=== PATIENT | male | born 1985 | race Caucasian/White ===

== ENCOUNTER 2016-04-26 07:16 | Observation (INO) | payer BC, OTHER ==
[~2016-04-26] VITALS: Ht 185.4 cm; Wt 97.5 kg
[2016-04-26] MEDS ORDERED: NICO4GUM8 PO (07:32)
[2016-04-26] MEDS ORDERED: ZOLO100T PO (07:32)
[2016-04-26] MEDS ORDERED: KETOROLAC 30 MG/ML VIAL (J1885) IV ONE (08:00)
[2016-04-26] MEDS ORDERED: NS 1,000 ML IV ONE (08:00)
[2016-04-26] MEDS ORDERED: ONDANSETRON 4MG/2ML VIAL (J2405) IV ONE (08:00)
[2016-04-26] MEDS ORDERED: GASTROGRAFIN SOLUTION 30ML (Q9963) As Ordered ONE (08:19)
[2016-04-26 08:34] LABS: BASO % 0.2 % (0.0-1.0); EOS # 0.1 K/mm3 (0.0-0.50); LARGE UNSTAINED CELL # 0.1 K/mm3 (0.0-0.4); LARGE UNSTAINED CELL % 1.3 % (0.0-4.0); LYMPH % 18.4 % (24.0-44.0); MEAN CORPUSCULAR HEMOGLOBIN 30.7 pg (27.0-33.0); MEAN CORPUSCULAR HGB CONC 35.7 g/dl (32.0-36.5); MONO # 0.7 K/mm3 (0.0-0.8); MONO % 6.6 % (0.0-5.0); NEUTROPHILS # 7.7 K/mm3 (1.8-7.7); NEUTROPHILS % 72.4 % (36.0-66.0); PLATELET COUNT, AUTOMATED 200 k/mm3 (150-450); RED CELL DISTRIBUTION WIDTH 12.6 % (11.5-14.5); WHITE BLOOD COUNT 10.6 K/mm3 (4.0-10.0)
[2016-04-26 08:56] LABS: ALBUMIN 4.3 GM/DL (3.2-5.2); ALBUMIN/GLOBULIN RATIO 1.26 (1.00-1.93); ALKALINE PHOSPHATASE 78 U/L (45-117); ALT/SGPT 58 U/L (12-78); AMYLASE 48 U/L (25-115); ANION GAP 8 MEQ/L (8-16); AST/SGOT 25 U/L (15-37); BILIRUBIN,DIRECT < 0.1 MG/DL (0.0-0.2); BILIRUBIN,TOTAL 0.8 MG/DL (0.2-1.0); BLOOD UREA NITROGEN 15 MG/DL (7-18); CALCIUM LEVEL 8.9 MG/DL (8.5-10.1); CARBON DIOXIDE LEVEL 27 MEQ/L (21-32); CHLORIDE LEVEL 103 MEQ/L (98-107); GLOMERULAR FILTRATION RATE > 60.0 (>60); GLUCOSE, FASTING 101 MG/DL (70-105); POTASSIUM SERUM 3.9 MEQ/L (3.5-5.1); SODIUM LEVEL 138 MEQ/L (136-145); TOTAL PROTEIN 7.7 GM/DL (6.4-8.2)
[2016-04-26] MEDS ORDERED: GASTROGRAFIN SOLUTION 30ML (Q9963) PO SCH (09:15)
[2016-04-26] MEDS ORDERED: ISOVUE-370 76% 100ML VIAL (Q9967) As Ordered ONE (09:58)
--- NOTE | 2016-04-26 10:28 | REP ---
Clinical: Acute abdominal pain with diarrhea, hematochezia, mucus in stools. Technique: Axial contrast enhanced images from the lung bases to the pubic symphysis using oral and 100 ml Isovue 370 intravenous contrast material with coronal and sagittal re-formations. Comparison: 07/30/2015. Findings: Subtle stranding in the right lower quadrant surrounding the appendix which is otherwise normal in appearance suggests early, acute appendicitis and should be correlated clinically. No associated bowel obstruction, free air, or drainable collection/abscess. Fatty infiltration to the liver without focal hepatic lesion. Spleen, pancreas, gallbladder, bilateral adrenal glands and kidneys are normal. The small large bowel is unremarkable and without obstruction or further acute inflammatory process. Pelvis demonstrates normal bladder and age appropriate prostate/seminal vesicles. No pelvic fluid or ascites. No free air. No adenopathy. Vasculature is normal. Chronic L5 spondylolysis without spondylolisthesis is appreciated. Impression: Findings suggest early, acute appendicitis and require clinical correlation. Fatty infiltration the liver. Chronic L5 spondylolysis without spondylolisthesis. Signed by Wally Rodriguez MD 04/26/2016 10:20 A
[2016-04-26] MEDS ORDERED: PIPERACILLIN/TAZOBACTAM SOD 3.375 GM in D5W MINI-BAG PLUS 50 ML IV ONE (11:00)
[2016-04-26] MEDS ORDERED: LR 1,000 ML IV ONE (12:30)
[2016-04-26 15:56] VITALS: BP 138/83
[2016-04-26] MEDS ORDERED: BENA25TA9 PO (16:39)
[2016-04-26] MEDS ORDERED: ONDANSETRON 4MG/2ML VIAL (J2405) IV PRN ×3 (17:45→22:15)
[2016-04-26] MEDS ORDERED: MORPHINE 2 MG/ML 1ML SYRINGE IV PRN ×2 (17:45→21:30)
[2016-04-26] MEDS ORDERED: PIPERACILLIN/TAZOBACTAM SOD 3.375 GM in D5W MINI-BAG PLUS 50 ML IV SCH (18:00)
[2016-04-26 18:45] VITALS: BP 163/84
[2016-04-26] MEDS ORDERED: BUPIVACAINE/EPIN 0.25% 30 ML VIAL As Ordered ONE (19:42)
[2016-04-26] MEDS ORDERED: HYDROmorphone HCL 2 MG/ML 1ML VIAL (J1170) As Ordered ONE (20:24)
[2016-04-26] MEDS ORDERED: MIDAZOLAM INJ 2 MG/2 ML VIAL (J2250) As Ordered ONE (20:24)
[2016-04-26] MEDS ORDERED: fentaNYL 100 MCG/2 ML INJECTION (J3010) As Ordered ONE (20:24)
[2016-04-26] MEDS ORDERED: PROPOFOL 500 MG/50 ML VIAL As Ordered ONE (20:24)
[2016-04-26] MEDS ORDERED: ROCURONIUM BROMIDE 50 MG/5 ML VIAL As Ordered ONE ×2 (20:27→20:36)
[2016-04-26] MEDS ORDERED: dexameTHASONE 4 MG/ML 1ML VIAL (J1100) As Ordered ONE (20:28)
[2016-04-26] MEDS ORDERED: LIDOCAINE 2% INJ 100 MG/5 ML SDV (FOR ANES.) As Ordered ONE (20:37)
[2016-04-26] MEDS ORDERED: NEOSTIGMINE 1MG/ML 5 ML SYRINGE (J2710) As Ordered ONE (21:03)
[2016-04-26] MEDS ORDERED: GLYCOPYRROLATE INJ 0.2 MG/ML 2 ML VIAL As Ordered ONE ×2 (21:03→21:12)
[2016-04-26] MEDS ORDERED: ONDANSETRON 4MG/2ML VIAL (J2405) As Ordered ONE (21:03)
[2016-04-26] MEDS ORDERED: PROMETHAZINE INJ 25 MG/ML VIAL (J2550) IV PRN (21:30)
[2016-04-26] MEDS ORDERED: MORPHINE 4 MG/ML 1ML SYRINGE IV PRN (21:30)
[2016-04-26] MEDS ORDERED: METOCLOPRAMIDE INJ 10MG/2ML VIAL (J2765) IV PRN (21:30)
[2016-04-26] MEDS ORDERED: NORCO, ANEXSIA 5/325MG TABLET (HYDROcodone/ACETAMINOPHEN) PO PRN (21:30)
[2016-04-26] MEDS ORDERED: KETOROLAC 30 MG/ML VIAL (J1885) As Ordered ONE (21:36)
[2016-04-26] MEDS ORDERED: MEPERIDINE INJ 25 MG/ML VIAL (J2175) As Ordered ONE (21:36)
[2016-04-26] MEDS: KETOROLAC 30 MG/ML VIAL (J1885) IV PRN (21:37)
[2016-04-26] MEDS: MEPERIDINE INJ 25 MG/ML VIAL (J2175) IV PRN ×4 (21:37→22:26)
[2016-04-26] MEDS ORDERED: KETOROLAC 30 MG/ML VIAL (J1885) IV PRN (22:15)
[2016-04-26] MEDS ORDERED: PERCOCET 5MG/325MG TAB PO PRN (22:15)
[2016-04-26] MEDS ORDERED: LR 1,000 ML IV SCH (22:15)
[2016-04-26] MEDS ORDERED: fentaNYL 100 MCG/2 ML INJECTION (J3010) IV PRN (22:15)
[2016-04-26] MEDS ORDERED: HYDROmorphone HCL 1 MG/ML SYRINGE (J1170) IV PRN (22:15)
[2016-04-26] MEDS: LR 1,000 ML IV SCH (22:30)
[2016-04-26 22:45] VITALS: BP 156/97
[2016-04-26 23:15] VITALS: BP 160/77
[2016-04-27] VITALS: BP 140/80
[2016-04-27] MEDS: PIPERACILLIN/TAZOBACTAM SOD 3.375 GM in D5W MINI-BAG PLUS 50 ML IV SCH ×3 (00:07→11:55)
[2016-04-27] MEDS: NORCO, ANEXSIA 5/325MG TABLET (HYDROcodone/ACETAMINOPHEN) PO PRN ×2 (00:08→06:39)
[2016-04-27 01:00] VITALS: BP 138/75
[2016-04-27 02:00] VITALS: BP 129/77
[2016-04-27 04:00] VITALS: BP 138/81
[2016-04-27] MEDS: KETOROLAC 30 MG/ML VIAL (J1885) IV PRN (04:12)
[2016-04-27] MEDS: LR 1,000 ML IV SCH (05:02)
[2016-04-27 08:39] VITALS: BP 116/62
[2016-04-27] MEDS ORDERED: SERTRALINE 100 MG TAB PO SCH (09:00)
[2016-04-27] MEDS ORDERED: NICOTINE 21MG/24HR 1 EA TRANSDERMAL TD SCH (09:00)
[2016-04-27] MEDS ORDERED: SLF 3 ML SYR IV PRN (10:15)
[2016-04-27 12:00] VITALS: BP 133/76
[2016-04-27] MEDS ORDERED: SLF 3 ML SYR IV SCH (14:00)
[2016-04-27] MEDS ORDERED: NORCOTAB PO (14:37)
[2016-04-28] MEDS ORDERED: SERTRALINE 100 MG TAB PO SCH (09:00)
== END 2016-04-27 15:45 | disposition home or self-care (01) ==
LOC: M ED 08:00 → M SDC 13:16 → M PED 15:55 → M SDC 21:18
PROVIDERS: ADMIT Surgery; ATTEND Surgery
DX: K35.3 Acute appendicitis with localized peritonitis (principal); K21.9 Gastro-esophageal reflux disease without esophagitis; K58.0 Irritable bowel syndrome with diarrhea; Z87.442 Personal history of urinary calculi; F17.210 Nicotine dependence, cigarettes, uncomplicated; Z79.899 Other long term (current) drug therapy
CPT/HCPCS: 44970; 74177; 80048; 80076; 81001; 82150; 83690; 85025; 88304; 96365; 96366; 96374; 96375; 96376; 99284; J1100; J1170; J1885; J2175; J2250; J2405; J2543; J2710; J3010; Q9963; Q9967

== ENCOUNTER → 2016-05-05 | Outpatient (REF) | payer BC, OTHER ==
[~2016-05-05] MED LIST: BENA25TA9 PO; NICO4GUM8 PO; NORCOTAB PO; ZOLO100T PO
== END ==
LOC: M LAB REF 12:39
PROVIDERS: ATTEND Internal Medicine Gastroenterology
DX: K58.0 Irritable bowel syndrome with diarrhea (principal)

== ENCOUNTER → 2016-05-07 | Outpatient (CLI) | payer BC, OTHER ==
[~2016-05-07] MED LIST changes: +E-Z PAQUE 60% w/v SUSP 355ML BOTTLE As Ordered ONE
--- NOTE | 2016-05-07 18:26 | REP ---
SMALL BOWEL FOLLOW-THROUGH: The procedure was performed under the direct supervision of Dr. Burr. The images were reviewed with Dr. Burr. The network/telecom engineer film shows no organomegaly or pathological masses. The intestinal gas pattern is nonspecific. Liquid barium was administered and the barium column was followed through the small bowel to the level of the terminal ileum. Small bowel transit time was quite rapid as there is contrast seen in the transverse colon on the 0 minute film. During fluoroscopy gentle palpation shows all loops are freely movable and pliable. There are no fixed or angulated loops. The small bowel mucosal pattern is normal in course and caliber. There is no transition to suggest a partial small bowel obstruction. Spot filming of terminal ileum shows it to be unremarkable. IMPRESSION: Small bowel transit time is quite rapid as contrast is seen in the transverse colon on the 0 minute film. Otherwise unremarkable small bowel follow-through examination. 59 seconds of fluoroscopy time was utilized for this procedure. Reviewed by LU Payan 05/10/2016 06:53 PEdited and Signed by Rip Burr MD 05/13/2016 09:52 A
== END ==
LOC: M RAD 08:09
PROVIDERS: ATTEND Internal Medicine Gastroenterology
DX: K58.0 Irritable bowel syndrome with diarrhea (principal)

== ENCOUNTER → 2016-05-14 | Outpatient (REF) | payer OTHER ==
[~2016-05-14] MED LIST changes: -E-Z PAQUE 60% w/v SUSP 355ML BOTTLE As Ordered ONE
[2016-05-14 12:02] LABS: BASO % 0.5 % (0.0-1.0); EOS # 0.1 K/mm3 (0.0-0.50); EOS % 2.5 % (0.0-3.0); LARGE UNSTAINED CELL # 0.1 K/mm3 (0.0-0.4); LARGE UNSTAINED CELL % 1.7 % (0.0-4.0); LYMPH # 1.8 K/mm3 (1.5-4.5); LYMPH % 39.6 % (24.0-44.0); MEAN CORPUSCULAR HEMOGLOBIN 31.1 pg (27.0-33.0); MEAN CORPUSCULAR HGB CONC 34.2 g/dl (32.0-36.5); MEAN CORPUSCULAR VOLUME 90.9 fl (80.0-96.0); MONO # 0.3 K/mm3 (0.0-0.8); NEUTROPHILS # 2.2 K/mm3 (1.8-7.7); NEUTROPHILS % 48.7 % (36.0-66.0); PLATELET COUNT, AUTOMATED 223 k/mm3 (150-450); RED CELL DISTRIBUTION WIDTH 12.6 % (11.5-14.5); WHITE BLOOD COUNT 4.5 K/mm3 (4.0-10.0)
[2016-05-14 13:51] LABS: ALBUMIN 4.5 GM/DL (3.2-5.2); ALBUMIN/GLOBULIN RATIO 1.45 (1.00-1.93); ALKALINE PHOSPHATASE 69 U/L (45-117); ALT/SGPT 81 U/L (12-78); ANION GAP 8 MEQ/L (8-16); AST/SGOT 42 U/L (15-37); BILIRUBIN,TOTAL 0.5 MG/DL (0.2-1.0); BLOOD UREA NITROGEN 16 MG/DL (7-18); CALCIUM LEVEL 9.4 MG/DL (8.5-10.1); CARBON DIOXIDE LEVEL 32 MEQ/L (21-32); CHLORIDE LEVEL 101 MEQ/L (98-107); CHOLESTEROL LEVEL 208 MG/DL (<200); CREATININE FOR GFR 1.08 MG/DL (0.70-1.30); FREE T4 0.95 NG/DL (0.76-1.46); GLOMERULAR FILTRATION RATE > 60.0 (>60); GLUCOSE, FASTING 83 MG/DL (70-105); POTASSIUM SERUM 4.1 MEQ/L (3.5-5.1); SODIUM LEVEL 141 MEQ/L (136-145); TOTAL PROTEIN 7.6 GM/DL (6.4-8.2); TRIGLYCERIDES LEVEL 287 MG/DL (<150)
== END ==
LOC: M SFHCPLAZ 08:25
PROVIDERS: ATTEND Nurse Practitioner Family
DX: Z00.00 Encounter for general adult medical examination without abnormal findings (principal); K58.0 Irritable bowel syndrome with diarrhea; F41.8 Other specified anxiety disorders; Z13.220 Encounter for screening for lipoid disorders

== ENCOUNTER → 2016-05-14 | Outpatient (REF) | payer OTHER ==
[2016-05-14 13:37] LABS: FREE T4 0.96 NG/DL (0.76-1.46)
== END ==
LOC: M LABDRAWP 12:32
PROVIDERS: ATTEND Internal Medicine Gastroenterology
DX: K58.0 Irritable bowel syndrome with diarrhea (principal)

== ENCOUNTER → 2016-06-18 | Outpatient (CLI) | payer BC, OTHER ==
[~2016-06-18] VITALS: Ht 185.4 cm; Wt 97.5 kg
[~2016-06-18] MED LIST changes: +DICY10SO PO; +LIDOCAINE 2% INJ 100 MG/5 ML SDV (FOR ANES.) As Ordered ONE; +NS 1,000 ML IV ONE; +PROPOFOL 200 MG/20 ML VIAL As Ordered ONE
--- NOTE | 2016-06-18 16:30 | ROOR ---
Patient Name: Keivn Saldana Procedure Date: 06/18/2016 3:50 PM Date of : 1985 Age: 30 Room: [facility] Gender: Male Note Status: Finalized Procedure: Colonoscopy Indications: Clostridium difficile positive (colonisation vs disease state), Not improved on flagyl x 15 days. Hematochezia, Exclusion of colitis, Suspected irritable bowel syndrome, Change in bowel habits, Chronic diarrhea--improved with dicyclomine and avoiding caffeine and dairy. Providers: Jorge HUERTAS MD Referring MD: Vidhi Armenta NP Requesting Provider: Medicines: Monitored Anesthesia Care Complications: No immediate complications. Procedure: Pre-Anesthesia Assessment: - The heart rate, respiratory rate, oxygen saturations, blood pressure, adequacy of pulmonary ventilation, and response to care were monitored throughout the procedure. The Colonoscope was introduced through the anus and advanced to 10 cm into the ileum. The colonoscopy was performed without difficulty. The patient tolerated the procedure well. The quality of the bowel preparation was good. Findings: The perianal and digital rectal examinations were normal. (Exam: Complete, Prep: Good or Excellent.) The entire colon appeared normal. The terminal ileum appeared normal. Fluid aspiration for cytology was performed in the entire colon. for clostridium difficile evaluation Impression: - The entire colon is normal. - The examined portion of the ileum (10 cm) was normal. - Small internal Hemorrhoids. - Fluid aspiration was performed for clostridium difficile evaluation - (Irritable Bowel Syndrome/IBS suspected.) Recommendation: - Telephone endoscopist for study results in 1 week. - Continue present medications. Jorge Huertas MD Jorge HUERTAS MD 06/18/2016 4:30:20 PM This report has been signed electronically. Number of Addenda: 0 Note Initiated On: 06/18/2016 3:50 PM Estimated Blood Loss: Estimated blood loss: none.
[2016-06-18 16:40] VITALS: BP 139/91
== END ==
LOC: M OPP 14:13
PROVIDERS: ATTEND Internal Medicine Gastroenterology
DX: K92.1 Melena (principal); R19.4 Change in bowel habit; K52.9 Noninfective gastroenteritis and colitis, unspecified; R10.9 Unspecified abdominal pain; F41.9 Anxiety disorder, unspecified; R14.0 Abdominal distension (gaseous); Z79.899 Other long term (current) drug therapy

== ENCOUNTER → 2016-11-26 | Outpatient (REF) | payer OTHER ==
[~2016-11-26] MED LIST changes: +BENA25TA10 PO; -BENA25TA9 PO; -LIDOCAINE 2% INJ 100 MG/5 ML SDV (FOR ANES.) As Ordered ONE; -NS 1,000 ML IV ONE; -PROPOFOL 200 MG/20 ML VIAL As Ordered ONE
[2016-11-26 13:05] LABS: ALBUMIN 4.4 GM/DL (3.2-5.2); ALBUMIN/GLOBULIN RATIO 1.33 (1.00-1.93); ALKALINE PHOSPHATASE 79 U/L (45-117); ALT/SGPT 64 U/L (12-78); ANION GAP 10 MEQ/L (8-16); AST/SGOT 25 U/L (15-37); BILIRUBIN,TOTAL 0.6 MG/DL (0.2-1.0); BLOOD UREA NITROGEN 16 MG/DL (7-18); CALCIUM LEVEL 9.5 MG/DL (8.5-10.1); CARBON DIOXIDE LEVEL 27 MEQ/L (21-32); CHLORIDE LEVEL 102 MEQ/L (98-107); CREATININE FOR GFR 1.12 MG/DL (0.70-1.30); GLOMERULAR FILTRATION RATE > 60.0 (>60); GLUCOSE, FASTING 88 MG/DL (70-105); POTASSIUM SERUM 4.2 MEQ/L (3.5-5.1); SODIUM LEVEL 139 MEQ/L (136-145); TOTAL PROTEIN 7.7 GM/DL (6.4-8.2)
== END ==
LOC: M SFHCPLAZ 08:22
PROVIDERS: ATTEND Nurse Practitioner Family
DX: E78.5 Hyperlipidemia, unspecified (principal); E55.9 Vitamin D deficiency, unspecified

== ENCOUNTER → 2017-01-28 | Outpatient (REF) | payer OTHER | LOC: M SFHCPLAZ 08:42 | PROVIDERS: ATTEND Nurse Practitioner Family | DX: E55.9 Vitamin D deficiency, unspecified (principal) ==

== ENCOUNTER → 2017-06-17 | Outpatient (CLI) | payer BC, OTHER | LOC: M WUC 13:59 | DX: R94.31 Abnormal electrocardiogram [ECG] [EKG] (principal) | CPT/HCPCS: 71046 ==

== ENCOUNTER → 2017-06-17 | Outpatient (REF) | payer OTHER ==
[2017-06-17 13:42] LABS: ALBUMIN 4.6 GM/DL (3.2-5.2); ALBUMIN/GLOBULIN RATIO 1.48 (1.00-1.93); ALKALINE PHOSPHATASE 75 U/L (45-117); ALT/SGPT 83 U/L (12-78); ANION GAP 8 MEQ/L (8-16); AST/SGOT 44 U/L (7-37); BILIRUBIN,TOTAL 0.5 MG/DL (0.2-1.0); BLOOD UREA NITROGEN 15 MG/DL (7-18); CALCIUM LEVEL 9.2 MG/DL (8.5-10.1); CARBON DIOXIDE LEVEL 26 MEQ/L (21-32); CHLORIDE LEVEL 107 MEQ/L (98-107); CHOLESTEROL LEVEL 243 MG/DL (<200); CHOLESTEROL RISK RATIO 8.379 (<5); CREATININE FOR GFR 1.13 MG/DL (0.70-1.30); FREE T4 0.86 NG/DL (0.76-1.46); GLOMERULAR FILTRATION RATE > 60.0 (>60); GLUCOSE, FASTING 94 MG/DL (70-100); HDL CHOLESTEROL 29 MG/DL (>40); NON-HDL-C 214 MG/DL; POTASSIUM SERUM 4.2 MEQ/L (3.5-5.1); SODIUM LEVEL 141 MEQ/L (136-145); TOTAL PROTEIN 7.7 GM/DL (6.4-8.2); TRIGLYCERIDES LEVEL 427 MG/DL (<150)
[2017-06-17 14:09] LABS: TOTAL 25(OH) VITAMIN D 13.9 NG/ML (30.0-100.0)
== END ==
LOC: M SFHCPLAZ 10:34
DX: E78.5 Hyperlipidemia, unspecified (principal); E55.9 Vitamin D deficiency, unspecified
CPT/HCPCS: 84443

== ENCOUNTER → 2017-07-20 | Outpatient (CLI) | payer BC, OTHER | LOC: M CARPUL 08:13 | DX: R03.0 Elevated blood-pressure reading, without diagnosis of hypertension (principal); R94.31 Abnormal electrocardiogram [ECG] [EKG] | CPT/HCPCS: 93306 ==

== ENCOUNTER → 2017-08-22 | Outpatient (REF) | payer OTHER | LOC: M SFHCPLAZ 07:16 | DX: R94.5 Abnormal results of liver function studies (principal) ==

== ENCOUNTER → 2017-11-25 | Outpatient (REF) | payer OTHER ==
[2017-11-25 13:21] LABS: ALBUMIN 4.6 GM/DL (3.2-5.2); ALKALINE PHOSPHATASE 72 U/L (45-117); ALT/SGPT 54 U/L (12-78); ANION GAP 9 MEQ/L (8-16); AST/SGOT 30 U/L (7-37); BILIRUBIN,TOTAL 0.6 MG/DL (0.2-1.0); BLOOD UREA NITROGEN 14 MG/DL (7-18); CALCIUM LEVEL 9.5 MG/DL (8.5-10.1); CARBON DIOXIDE LEVEL 27 MEQ/L (21-32); CHLORIDE LEVEL 106 MEQ/L (98-107); CREATININE FOR GFR 1.15 MG/DL (0.70-1.30); GLOMERULAR FILTRATION RATE > 60.0 (>60); GLUCOSE, FASTING 98 MG/DL (70-100); POTASSIUM SERUM 4.2 MEQ/L (3.5-5.1); SODIUM LEVEL 142 MEQ/L (136-145); TOTAL PROTEIN 7.3 GM/DL (6.4-8.2)
[2017-11-25 14:01] LABS: MAU/CREAT RATIO 43.6 MCG/MG (0.0-30.0)
== END ==
LOC: M SFHCPLAZ 09:07
DX: K76.0 Fatty (change of) liver, not elsewhere classified (principal); I10 Essential (primary) hypertension
CPT/HCPCS: 80053

== ENCOUNTER 2017-12-13 04:09 | Emergency (ER) | payer BC, OTHER ==
[2017-12-13 05:02] LABS: INFLUENZA A AMPLIFICATION NEGATIVE (NEGATIVE); INFLUENZA B AMPLIFICATION NEGATIVE (NEGATIVE)
== END 2017-12-13 05:22 | disposition home or self-care (01) ==
LOC: M ED 04:09
DX: J06.9 Acute upper respiratory infection, unspecified (principal); F33.9 Major depressive disorder, recurrent, unspecified; F17.200 Nicotine dependence, unspecified, uncomplicated; Z79.899 Other long term (current) drug therapy; Z86.79 Personal history of other diseases of the circulatory system
CPT/HCPCS: 71046

== ENCOUNTER → 2018-01-05 | Outpatient (CLI) | payer BC, OTHER | LOC: M SLEEP 19:44 | DX: G47.33 Obstructive sleep apnea (adult) (pediatric) (principal) | CPT/HCPCS: 95810 ==

== ENCOUNTER → 2018-02-16 | Outpatient (CLI) | payer BC, OTHER ==
[~2018-02-16] MED LIST changes: +ZITHTAB PO
--- NOTE | 2018-02-21 11:03 | SLEEPCENT ---
DATE OF PROCEDURE: 02/16/2018 ORDERING PROVIDER: Dr. Carson Nocturnal polysomnography was performed for the titration of pressure therapy in this patient with obstructive sleep apnea syndrome. Apnea-hypopnea index 16.8. For testingm, the patient was fit with a ResMed Quattro full-face mask of large size, 5 cm of water pressure were applied to the circuit, and the lights were extinguished. 6 hours of data were reviewed. There were 309 minutes of sleep identified. Sleep latency was prolonged at 35 minutes. Rapid eye movement (REM) latency was prolonged 158 minutes. Sleep architecture improved late in the study. There were two to three REM cycles noted. Overall sleep efficiency was 85.7%. The patient's electrocardiogram showed a sinus rhythm with an average heart rate of 68 beats per minute. Electroencephalogram (EEG) showed normal waveforms for awake and sleep. Respiratory events were fully palliated with CPAP to a pressure of +9 with minimal activity in the limb leads noted. Snoring abated after pressure therapy was optimized. Overall limb movement arousal index was 7.4. IMPRESSION: Obstructive sleep apnea syndrome (G47.33). RECOMMENDATIONS: Nightly use of pressure therapy 9 cm of water.
== END ==
LOC: M SLEEP 19:31
PROVIDERS: ATTEND Internal Medicine Pulmonary Disease
DX: G47.33 Obstructive sleep apnea (adult) (pediatric) (principal)

== ENCOUNTER → 2018-05-19 | Outpatient (REF) | payer OTHER ==
[~2018-05-19] MED LIST changes: +HYDR-3715 PO; -NORCOTAB PO
== END ==
LOC: M SFHCPLAZ 07:40
PROVIDERS: ATTEND Nurse Practitioner Family
DX: I10 Essential (primary) hypertension (principal); E78.5 Hyperlipidemia, unspecified; E55.9 Vitamin D deficiency, unspecified; Z53.9 Procedure and treatment not carried out, unspecified reason

== ENCOUNTER → 2018-06-16 | Outpatient (REF) | payer OTHER ==
[2018-06-16 12:45] LABS: ALBUMIN 4.5 GM/DL (3.2-5.2); ALT/SGPT 64 U/L (12-78); BILIRUBIN,TOTAL 0.5 MG/DL (0.2-1.0); BLOOD UREA NITROGEN 15 MG/DL (7-18); CARBON DIOXIDE LEVEL 26 MEQ/L (21-32); CHLORIDE LEVEL 106 MEQ/L (98-107); CHOLESTEROL LEVEL 222 MG/DL (<200); CHOLESTEROL RISK RATIO 6.727 (<5); GLOMERULAR FILTRATION RATE > 60.0 (>60); GLUCOSE, FASTING 101 MG/DL (70-100); HDL CHOLESTEROL 33 MG/DL (>40); NON-HDL-C 189 MG/DL; POTASSIUM SERUM 3.5 MEQ/L (3.5-5.1); SODIUM LEVEL 141 MEQ/L (136-145); TOTAL PROTEIN 7.1 GM/DL (6.4-8.2); TRIGLYCERIDES LEVEL 417 MG/DL (<150)
[2018-06-16 12:47] LABS: TOTAL 25(OH) VITAMIN D 45.5 NG/ML (30.0-100.0)
== END ==
LOC: M SFHCPLAZ 08:33
PROVIDERS: ATTEND Nurse Practitioner Family
DX: I10 Essential (primary) hypertension (principal); E78.5 Hyperlipidemia, unspecified; E55.9 Vitamin D deficiency, unspecified

== ENCOUNTER → 2018-09-29 | Outpatient (REF) | payer OTHER ==
[~2018-09-29] MED LIST changes: +AMOX500C PO; +BUSP1TAB; +CARA1TAB6 PO; +CIPRODEX AD; +LISI10TA4; +OMEP-218; +PSEU30TA85 PO; +ROBICAP2 PO; +cough and cold PO
[2018-09-29 14:09] LABS: ALBUMIN 4.3 GM/DL (3.2-5.2); ALT/SGPT 72 U/L (12-78); BILIRUBIN,TOTAL 0.4 MG/DL (0.2-1.0); BLOOD UREA NITROGEN 19 MG/DL (7-18); CALCIUM LEVEL 9.5 MG/DL (8.5-10.1); CARBON DIOXIDE LEVEL 26 MEQ/L (21-32); CHLORIDE LEVEL 103 MEQ/L (98-107); CREATININE FOR GFR 1.07 MG/DL (0.70-1.30); GLOMERULAR FILTRATION RATE > 60.0 (>60); GLUCOSE, FASTING 80 MG/DL (70-100); POTASSIUM SERUM 4.3 MEQ/L (3.5-5.1); SODIUM LEVEL 139 MEQ/L (136-145); TOTAL PROTEIN 7.3 GM/DL (6.4-8.2)
[2018-09-29 14:11] LABS: MALB URINE SIEMENS 16.3 MG/L; MAU/CREAT RATIO 12.2 MCG/MG (0.0-30.0)
== END ==
LOC: M SFHCPLAZ 09:35
PROVIDERS: ATTEND Nurse Practitioner Family
DX: I10 Essential (primary) hypertension (principal); F41.8 Other specified anxiety disorders

== ENCOUNTER 2018-11-28 07:28 | Emergency (ER) | payer BC, OTHER ==
[~2018-11-28] VITALS: Ht 185.4 cm; Wt 93.2 kg
[~2018-11-28 07:28] MED LIST changes: -AMOX500C PO; -BUSP1TAB; -CARA1TAB6 PO; -CIPRODEX AD; -LISI10TA4; -OMEP-218; -PSEU30TA85 PO; -ROBICAP2 PO; -cough and cold PO
[2018-11-28] MEDS ORDERED: LISI10TA4 (07:36)
[2018-11-28] MEDS ORDERED: OMEP-218 (07:36)
[2018-11-28] MEDS ORDERED: GI COCKTAIL 50ML BTL(HYOSCYAMINE/MAALOX/LIDOCAINE VISCOUS)(1:3:1) PO ONE (08:30)
[2018-11-28 09:16] LABS: BASO % 0.8 % (0.0-1.0); EOS # 0.1 10^3/uL (0.0-0.5); EOS % 2.9 % (0.0-3.0); HEMATOCRIT 43.5 % (42.0-52.0); HEMOGLOBIN 15.5 g/dl (13.5-17.5); LYMPH # 1.5 10^3/uL (1.5-5.0); LYMPH % 30.9 % (24.0-44.0); MEAN CORPUSCULAR HEMOGLOBIN 33.5 pg (27.0-33.0); MEAN CORPUSCULAR HGB CONC 35.6 g/dl (32.0-36.5); MEAN CORPUSCULAR VOLUME 94.2 fl (80.0-96.0); MONO # 0.4 10^3/uL (0.0-0.8); MONO % 8.8 % (0.0-5.0); NEUTROPHILS # 2.7 10^3/uL (1.5-8.5); PLATELET COUNT, AUTOMATED 174 10^3/uL (150-450); RED BLOOD COUNT 4.62 10^6/uL (4.30-6.10); WHITE BLOOD COUNT 4.9 10^3/uL (4.0-10.0)
[2018-11-28 09:21] LABS: ALBUMIN 4.1 GM/DL (3.2-5.2); ALT/SGPT 96 U/L (12-78); AMYLASE 39 U/L (25-115); BILIRUBIN,DIRECT 0.1 MG/DL (0.0-0.2); BILIRUBIN,TOTAL 0.7 MG/DL (0.2-1.0); BLOOD UREA NITROGEN 13 MG/DL (7-18); CALCIUM LEVEL 9.1 MG/DL (8.5-10.1); CARBON DIOXIDE LEVEL 28 MEQ/L (21-32); CHLORIDE LEVEL 103 MEQ/L (98-107); CREATININE FOR GFR 1.17 MG/DL (0.70-1.30); GLOMERULAR FILTRATION RATE > 60.0 (>60); GLUCOSE, FASTING 99 MG/DL (70-100); LIPASE 173 U/L (73-393); POTASSIUM SERUM 4.2 MEQ/L (3.5-5.1); SODIUM LEVEL 139 MEQ/L (136-145); TOTAL PROTEIN 7.4 GM/DL (6.4-8.2)
[2018-11-28 09:22] LABS: APPEARANCE, URINE CLEAR (CLEAR); BACTERIA, URINE AUTO NEGATIVE (NEGATIVE); BILIRUBIN, URINE AUTO NEGATIVE (NEGATIVE); BLOOD, URINE BLOOD NEGATIVE (NEGATIVE); COLOR, URINE YELLOW (YELLOW); GLUCOSE, URINE (UA) AUTO NEGATIVE (NEGATIVE); KETONE, URINE AUTO NEGATIVE (NEGATIVE); LEUKOCYTE ESTERASE, URINE AUTO NEGATIVE (NEGATIVE); MUCUS, URINE SMALL (NEGATIVE); NITRITE, URINE AUTO NEGATIVE (NEGATIVE); PROTEIN, URINE AUTO NEGATIVE (NEGATIVE); RBC, URINE AUTO 4 /HPF (0-3); SPECIFIC GRAVITY URINE AUTO 1.021 (1.002-1.035); SQUAMOUS EPITHELIAL CELL UR AU 0 /HPF (0-6); UROBILINOGEN, URINE AUTO 0.2 mg/dL (0.0-2.0); WBC, URINE AUTO 1 /HPF (0-3)
--- NOTE | 2018-11-28 10:59 | REP ---
RIGHT UPPER QUADRANT ULTRASOUND: Real-time sonographic evaluation of the right upper quadrant are performed. Gallbladder demonstrates no evidence of intraluminal sludge or calculi, wall thickening or pericholecystic fluid. There is no intrahepatic or extrahepatic biliary dilatation, common bile duct measuring 4 mm. Liver demonstrates diffuse heterogeneous echotexture compatible with diffuse fibrofatty infiltration. No gross mass is seen. Visualized pancreas is grossly unremarkable, not optimally seen due to overlying bowel gas. Right kidney demonstrates no hydronephrosis with normal size 11.2 cm in length. IMPRESSION: Diffuse fibrofatty infiltration of the liver. Otherwise negative right upper quadrant ultrasound. Electronically Signed by Javid Kang MD 11/29/2018 11:45 A
[2018-11-28] MEDS ORDERED: CARA1TAB6 PO (11:00)
[2018-11-28 11:20] VITALS: BP 139/103
[2018-11-29 09:36] LABS: HEPATITIS B SURFACE ANTIGEN NEGATIVE (NEGATIVE)
[2018-11-29 10:03] LABS: HEPATITIS C VIRUS ABY INDEX 0.1 INDEX (<0.8)
[2018-11-29 10:04] LABS: HEPATITIS B CORE ANTIBODY IGM NEGATIVE (NEGATIVE)
[2018-11-29 10:06] LABS: HEPATITIS A ANTIBODY IGM NEGATIVE (NEGATIVE)
== END 2018-11-28 11:34 | disposition home or self-care (01) ==
LOC: M ED 07:28
DX: R10.10 Upper abdominal pain, unspecified (principal); K76.0 Fatty (change of) liver, not elsewhere classified; I10 Essential (primary) hypertension; F33.9 Major depressive disorder, recurrent, unspecified; K58.9 Irritable bowel syndrome, unspecified; Z79.899 Other long term (current) drug therapy

== ENCOUNTER 2018-12-27 12:42 | Emergency (ER) | payer BC, OTHER ==
[~2018-12-27] VITALS: Ht 185.4 cm; Wt 90.9 kg
[~2018-12-27 12:42] MED LIST changes: +CARA1TAB6 PO; +LISI10TA4; +OMEP-218
[2018-12-27] MEDS ORDERED: ROBICAP2 PO (13:44)
[2018-12-27] MEDS ORDERED: cough and cold PO (13:44)
[2018-12-27 13:48] LABS: BASO % 0.5 % (0.0-1.0); EOS # 0.2 10^3/uL (0.0-0.5); EOS % 2.5 % (0.0-3.0); HEMATOCRIT 48.1 % (42.0-52.0); HEMOGLOBIN 17.3 g/dl (13.5-17.5); LYMPH # 2.3 10^3/uL (1.5-5.0); LYMPH % 27.6 % (24.0-44.0); MEAN CORPUSCULAR HEMOGLOBIN 32.9 pg (27.0-33.0); MEAN CORPUSCULAR VOLUME 91.4 fl (80.0-96.0); MONO # 0.6 10^3/uL (0.0-0.8); MONO % 7.6 % (0.0-5.0); NEUTROPHILS # 5.1 10^3/uL (1.5-8.5); NEUTROPHILS % 61.2 % (36.0-66.0); PLATELET COUNT, AUTOMATED 225 10^3/uL (150-450); RED BLOOD COUNT 5.26 10^6/uL (4.30-6.10); WHITE BLOOD COUNT 8.4 10^3/uL (4.0-10.0)
[2018-12-27 14:18] LABS: ALBUMIN 4.5 GM/DL (3.2-5.2); ALT/SGPT 142 U/L (12-78); BILIRUBIN,DIRECT 0.2 MG/DL (0.0-0.2); BILIRUBIN,TOTAL 0.8 MG/DL (0.2-1.0); BLOOD UREA NITROGEN 8 MG/DL (7-18); CALCIUM LEVEL 9.9 MG/DL (8.5-10.1); CARBON DIOXIDE LEVEL 27 MEQ/L (21-32); CHLORIDE LEVEL 103 MEQ/L (98-107); CREATININE FOR GFR 1.12 MG/DL (0.70-1.30); GLOMERULAR FILTRATION RATE > 60.0 (>60); GLUCOSE, FASTING 109 MG/DL (70-100); LIPASE 119 U/L (73-393); SODIUM LEVEL 139 MEQ/L (136-145); TOTAL PROTEIN 8.2 GM/DL (6.4-8.2)
--- NOTE | 2018-12-27 15:30 | REP ---
SCROTAL ULTRASOUND: Real-time sonographic evaluation of the scrotum and contents performed. Testicles are normal in size and echotexture, the right testicle measuring 4.6 x 2.8 x 3.4 cm and left testicle 4.9 x 2.6 x 3.0 cm. There is no testicular mass or torsion. Blood flow is seen in each testicle with duplex Doppler evaluation. A few tiny calcifications are seen in the testicles. There is a cyst in the left epididymis 1 cm in diameter. There are small hydroceles bilaterally. IMPRESSION: No testicular mass or torsion. No evidence of epididymitis or orchitis. 1 cm cyst left epididymis with small bilateral hydroceles. Electronically Signed by Javid Kang MD 12/28/2018 11:24 A
[2018-12-27 15:50] LABS: CHLAMYDIA DNA AMPLIFICATION NEGATIVE (NEGATIVE); GC DNA AMPLIFICATION NEGATIVE (NEGATIVE)
--- NOTE | 2018-12-27 16:39 | REP ---
CT abdomen and pelvis without IV or oral contrast: History: Left flank pain. History of kidney stones. Comparison CT study April 26, 2016. CT findings: Digital preliminary stock sheets cleaner inspector radiograph is unremarkable. The lung bases are clear on axial CT images. There is moderate to marked diffuse fatty infiltration of the liver. No focal hepatic lesion is seen. The liver is enlarged, sagittal vertical span 19.1 cm in the midclavicular line. This is unchanged. Spleen is normal in size and homogeneous in texture. No adrenal lesion is seen. The kidneys are morphologically intact. No intrarenal calculus or hydronephrosis is apparent. No abnormalities noted in the pancreas or the gallbladder. No retroperitoneal mass or adenopathy is seen. The appendix is surgically absent. Small and large bowel loops are normal in the abdomen and pelvis. Prostate, seminal vesicles and urinary bladder are unremarkable. No abdominal wall defect is seen. Impression: No urinary tract calculus or hydronephrosis seen. Appendix surgically absent. There is moderate to marked fatty infiltration of the liver. There is hepatomegaly with a vertical liver span of 19.1 cm in the right midclavicular line. This appears essentially unchanged. No other abnormality. Electronically Signed by Nirmal Amaya MD 12/27/2018 05:00 P
[2018-12-27 17:16] VITALS: BP 141/98
--- NOTE | 2018-12-29 10:32 | ED PDOC ---
Post-Departure Follow-Up debo day and dr solis ct abd/p for fu Marie Rivera MD Dec 29, 2018 10:32
== END 2018-12-27 17:22 | disposition home or self-care (01) ==
LOC: M ED 12:42
DX: R94.5 Abnormal results of liver function studies (principal); K76.0 Fatty (change of) liver, not elsewhere classified; R16.0 Hepatomegaly, not elsewhere classified; N50.3 Cyst of epididymis; N43.3 Hydrocele, unspecified; I10 Essential (primary) hypertension; K21.9 Gastro-esophageal reflux disease without esophagitis; K58.0 Irritable bowel syndrome with diarrhea; F41.9 Anxiety disorder, unspecified; F32.9 Major depressive disorder, single episode, unspecified; Z87.442 Personal history of urinary calculi; F17.290 Nicotine dependence, other tobacco product, uncomplicated; Z79.899 Other long term (current) drug therapy

== ENCOUNTER 2019-02-15 05:00 | Emergency (ER) | payer BC, OTHER ==
[~2019-02-15] VITALS: Ht 185.4 cm; Wt 90.2 kg
[~2019-02-15 05:00] MED LIST changes: +ROBICAP2 PO; +cough and cold PO
[2019-02-15] MEDS ORDERED: PSEU30TA85 PO (05:37)
[2019-02-15] MEDS ORDERED: BUSP1TAB (05:37)
[2019-02-15] MEDS ORDERED: CIPRODEX OTIC SUSP 7.5ML AD STA (06:21)
[2019-02-15] MEDS ORDERED: IBUPROFEN 800 MG TAB PO ONE (06:30)
[2019-02-15] MEDS ORDERED: AMOXICILLIN 500 MG CAP PO ONE (06:30)
[2019-02-15] MEDS ORDERED: CIPRODEX AD (06:38)
[2019-02-15] MEDS ORDERED: AMOX500C PO (06:38)
[2019-02-15 06:39] VITALS: BP 165/108
== END 2019-02-15 06:47 | disposition home or self-care (01) ==
LOC: M ED 05:00
DX: H60.501 Unspecified acute noninfective otitis externa, right ear (principal); I10 Essential (primary) hypertension; F41.9 Anxiety disorder, unspecified; F32.9 Major depressive disorder, single episode, unspecified

== ENCOUNTER → 2019-03-30 | Outpatient (REF) | payer OTHER ==
[~2019-03-30] MED LIST changes: +AMOX500C PO; +BUSP1TAB; +CIPRODEX AD; +PSEU30TA85 PO
[2019-03-30 11:35] LABS: ALBUMIN 4.6 GM/DL (3.2-5.2); ALT/SGPT 80 U/L (12-78); BILIRUBIN,TOTAL 0.4 MG/DL (0.2-1.0); BLOOD UREA NITROGEN 12 MG/DL (7-18); CALCIUM LEVEL 9.8 MG/DL (8.5-10.1); CARBON DIOXIDE LEVEL 30 MEQ/L (21-32); CHLORIDE LEVEL 106 MEQ/L (98-107); CHOLESTEROL LEVEL 268 MG/DL (<200); CHOLESTEROL RISK RATIO 6.871 (<5); CREATININE FOR GFR 1.06 MG/DL (0.70-1.30); FREE T4 0.89 NG/DL (0.76-1.46); GLOMERULAR FILTRATION RATE > 60.0 (>60); GLUCOSE, FASTING 78 MG/DL (70-100); HDL CHOLESTEROL 39 MG/DL (>40); LDL CHOLESTEROL 166 MG/DL (<100); NON-HDL-C 229 MG/DL; SODIUM LEVEL 140 MEQ/L (136-145); TOTAL PROTEIN 7.6 GM/DL (6.4-8.2); TRIGLYCERIDES LEVEL 316 MG/DL (<150)
== END ==
LOC: M SFHCPLAZ 08:39
PROVIDERS: ATTEND Physician Assistant
DX: I10 Essential (primary) hypertension (principal); E78.5 Hyperlipidemia, unspecified

== ENCOUNTER 2019-09-02 18:50 | Inpatient (IN) | payer BC, OTHER ==
[2019-09-02] MEDS ORDERED: OXAZEPAM 15 MG CAP ONE (20:57)
[2019-09-02] MEDS ORDERED: ONDANSETRON 4MG/2ML VIAL ONE (20:57)
[2019-09-02] MEDS ORDERED: ONDANSETRON 4MG/2ML VIAL As Ordered ONE (20:57)
[2019-09-02] MEDS ORDERED: OXAZEPAM 15 MG CAP As Ordered ONE (20:57)
[2019-09-02] MEDS ORDERED: POTASSIUM CHLORIDE 10 MEQ SR TABLET ONE (22:55)
[2019-09-02] MEDS ORDERED: POTASSIUM CHLORIDE 10 MEQ SR TABLET As Ordered ONE (22:55)
[2019-09-03] MEDS ORDERED: LORazepam 2 MG/ML VIAL ONE (01:49)
[2019-09-03] MEDS ORDERED: LORazepam 2 MG/ML VIAL As Ordered ONE (01:49)
[2019-09-03] MEDS ORDERED: LORazepam 1 MG TAB ONE ×4 (02:00→11:31)
[2019-09-03] MEDS ORDERED: ALPRAZolam 0.25 MG TAB ONE ×2 (06:34→09:51)
[2019-09-03] MEDS ORDERED: HEPARIN SOD (PORCINE) 5000UNITS/ML 1ML VIAL/SYRINGE ONE ×2 (06:34→09:51)
[2019-09-03] MEDS ORDERED: MULTIVITAMINS/MINERALS THERAP 1 TAB ONE (09:51)
[2019-09-03] MEDS ORDERED: THIAMINE 100 MG TAB ONE (09:51)
[2019-09-03] MEDS ORDERED: OMEPRAZOLE 20 MG CAP ONE (09:51)
[2019-09-03] MEDS ORDERED: SERTRALINE 100 MG TAB ONE (09:51)
[2019-09-03] MEDS ORDERED: FOLIC ACID 1 MG TAB ONE (09:51)
[2019-09-03] MEDS ORDERED: NICOTINE 14 MG/24 HR TRANSDERMAL ONE (09:51)
[2019-09-03] MEDS ORDERED: PANTOPRAZOLE 40MG VIAL (C9113 PER 1) ONE (09:51)
[2019-09-03] MEDS ORDERED: LORazepam 1 MG TAB As Ordered ONE ×4 (09:51→23:31)
[2019-09-03] MEDS ORDERED: MULTIVITAMINS/MINERALS THERAP 1 TAB As Ordered ONE (09:53)
[2019-09-03] MEDS ORDERED: THIAMINE 100 MG TAB As Ordered ONE (09:54)
[2019-09-03] MEDS ORDERED: PANTOPRAZOLE 40MG VIAL (C9113 PER 1) As Ordered ONE (09:54)
[2019-09-03] MEDS ORDERED: NICOTINE 14 MG/24 HR TRANSDERMAL As Ordered ONE (09:54)
[2019-09-03] MEDS ORDERED: FOLIC ACID 1 MG TAB As Ordered ONE (09:54)
[2019-09-03] MEDS ORDERED: SERTRALINE 100 MG TAB As Ordered ONE (13:17)
[2019-09-03] MEDS ORDERED: OMEPRAZOLE 20 MG CAP As Ordered ONE (13:17)
[2019-09-03] MEDS ORDERED: ALPRAZolam 0.25 MG TAB As Ordered ONE ×2 (13:17→21:43)
[2019-09-03] MEDS ORDERED: HEPARIN SOD (PORCINE) 5000UNITS/ML 1ML VIAL/SYRINGE As Ordered ONE ×2 (13:58→21:44)
[2019-09-04] MEDS ORDERED: LORazepam 1 MG TAB ONE ×4 (04:06→08:53)
[2019-09-04] MEDS ORDERED: LORazepam 1 MG TAB As Ordered ONE ×4 (04:06→08:53)
[2019-09-04] MEDS ORDERED: HEPARIN SOD (PORCINE) 5000UNITS/ML 1ML VIAL/SYRINGE ONE (05:34)
[2019-09-04] MEDS ORDERED: HEPARIN SOD (PORCINE) 5000UNITS/ML 1ML VIAL/SYRINGE As Ordered ONE (05:45)
[2019-09-04] MEDS ORDERED: NICOTINE 14 MG/24 HR TRANSDERMAL As Ordered ONE (08:52)
[2019-09-04] MEDS ORDERED: THIAMINE 100 MG TAB ONE (08:52)
[2019-09-04] MEDS ORDERED: ALPRAZolam 0.25 MG TAB ONE (08:52)
[2019-09-04] MEDS ORDERED: NICOTINE 14 MG/24 HR TRANSDERMAL ONE (08:52)
[2019-09-04] MEDS ORDERED: MULTIVITAMINS/MINERALS THERAP 1 TAB ONE (08:52)
[2019-09-04] MEDS ORDERED: OMEPRAZOLE 20 MG CAP As Ordered ONE (08:52)
[2019-09-04] MEDS ORDERED: OMEPRAZOLE 20 MG CAP ONE (08:52)
[2019-09-04] MEDS ORDERED: SERTRALINE 100 MG TAB ONE (08:52)
[2019-09-04] MEDS ORDERED: ALPRAZolam 0.25 MG TAB As Ordered ONE (08:52)
[2019-09-04] MEDS ORDERED: THIAMINE 100 MG TAB As Ordered ONE (08:52)
[2019-09-04] MEDS ORDERED: FOLIC ACID 1 MG TAB ONE (08:52)
[2019-09-04] MEDS ORDERED: MULTIVITAMINS/MINERALS THERAP 1 TAB As Ordered ONE (08:52)
[2019-09-04] MEDS ORDERED: FOLIC ACID 1 MG TAB As Ordered ONE (08:53)
[2019-09-04] MEDS ORDERED: SERTRALINE 100 MG TAB As Ordered ONE (08:53)
[2019-10-09 14:23] LABS: ALBUMIN 4.4 GM/DL (3.2-5.2); BILIRUBIN,DIRECT 0.4 MG/DL (0.0-0.2); BILIRUBIN,TOTAL 1.1 MG/DL (0.2-1.0); CALCIUM LEVEL 9.7 MG/DL (8.5-10.1); CREATININE FOR GFR 1.72 MG/DL (0.70-1.30); GLOMERULAR FILTRATION RATE 48.7 (>60); POTASSIUM SERUM 3.3 MEQ/L (3.5-5.1)
[2019-10-10 13:19] LABS: HEMOGLOBIN 13.1 g/dl (13.5-17.5); MEAN CORPUSCULAR HEMOGLOBIN 34.1 pg (27.0-33.0); MEAN CORPUSCULAR HGB CONC 35.4 g/dl (32.0-36.5); MEAN CORPUSCULAR VOLUME 96.4 fl (80.0-96.0); PLATELET COUNT, AUTOMATED 160 10^3/uL (150-450); RED BLOOD COUNT 3.84 10^6/uL (4.30-6.10); WHITE BLOOD COUNT 6.2 10^3/uL (4.0-10.0)
[2019-10-15 22:55] LABS: HEMATOCRIT 34.9 % (42.0-52.0); HEMOGLOBIN 12.1 g/dl (13.5-17.5); MEAN CORPUSCULAR HEMOGLOBIN 34.2 pg (27.0-33.0); MEAN CORPUSCULAR HGB CONC 34.7 g/dl (32.0-36.5); MEAN CORPUSCULAR VOLUME 98.6 fl (80.0-96.0); PLATELET COUNT, AUTOMATED 123 10^3/uL (150-450); RED BLOOD COUNT 3.54 10^6/uL (4.30-6.10); WHITE BLOOD COUNT 3.5 10^3/uL (4.0-10.0)
[2019-10-16 08:04] LABS: ALBUMIN 3.9 GM/DL (3.2-5.2); CALCIUM LEVEL 8.8 MG/DL (8.5-10.1); CREATININE FOR GFR 1.54 MG/DL (0.70-1.30); GLOMERULAR FILTRATION RATE 55.3 (>60); MAGNESIUM LEVEL 1.5 MG/DL (1.8-2.4); POTASSIUM SERUM 3.8 MEQ/L (3.5-5.1); TOTAL PROTEIN 6.8 GM/DL (6.4-8.2)
[2019-10-25 10:46] LABS: BASO % 0.5 % (0.0-1.0); EOS % 0.5 % (0.0-3.0); HEMATOCRIT 42.6 % (42.0-52.0); HEMOGLOBIN 15.5 g/dl (13.5-17.5); LYMPH # 1.9 10^3/uL (1.5-5.0); LYMPH % 29.3 % (24.0-44.0); MEAN CORPUSCULAR HEMOGLOBIN 33.8 pg (27.0-33.0); MEAN CORPUSCULAR HGB CONC 36.4 g/dl (32.0-36.5); MEAN CORPUSCULAR VOLUME 92.8 fl (80.0-96.0); MONO # 0.5 10^3/uL (0.0-0.8); MONO % 7.9 % (0.0-5.0); NEUTROPHILS % 61.5 % (36.0-66.0); PLATELET COUNT, AUTOMATED 210 10^3/uL (150-450); RED BLOOD COUNT 4.59 10^6/uL (4.30-6.10); WHITE BLOOD COUNT 6.4 10^3/uL (4.0-10.0)
--- NOTE | 2019-10-25 16:22 | REP ---
RIGHT UPPER QUADRANT ULTRASOUND: HISTORY: Elevated liver function studies. FINDINGS: Scanning through the right upper quadrant of the abdomen demonstrates an enlarged liver demonstrating fatty infiltration of the liver. The liver measures 22 cm in midclavicular line vertical span. No focal liver lesion is seen. The pancreas is obscured by abdominal gas. The CBD is normal, measuring 0.4 cm in greatest diameter. No right renal abnormality is observed. A normal size thin- walled gallbladder is seen. IMPRESSION: Hepatomegaly and evidence of fatty infiltration of the liver. Otherwise negative right upper quadrant sonography. MTDD
[2019-11-18 08:17] LABS: ALBUMIN 3.5 GM/DL (3.2-5.2); ALT/SGPT 107 U/L (12-78); BLOOD UREA NITROGEN 7 MG/DL (7-18); CALCIUM LEVEL 8.7 MG/DL (8.5-10.1); CARBON DIOXIDE LEVEL 28 MEQ/L (21-32); CHLORIDE LEVEL 108 MEQ/L (98-107); CREATININE FOR GFR 1.22 MG/DL (0.70-1.30); GLOMERULAR FILTRATION RATE > 60.0 (>60); GLUCOSE, FASTING 110 MG/DL (70-100); POTASSIUM SERUM 3.7 MEQ/L (3.5-5.1); SODIUM LEVEL 144 MEQ/L (136-145); TOTAL PROTEIN 6.4 GM/DL (6.4-8.2)
== END 2019-09-04 09:34 | disposition left against medical advice (07) | DRG 770 ==
LOC: M ED 18:50 → M PCU 23:40
PROVIDERS: ADMIT Internal Medicine; ATTEND Internal Medicine
DX: F10.239 Alcohol dependence with withdrawal, unspecified (principal); N17.9 Acute kidney failure, unspecified; R74.8 Abnormal levels of other serum enzymes; K70.10 Alcoholic hepatitis without ascites

== ENCOUNTER → 2020-03-17 | Outpatient (REF) | payer OTHER ==
[~2020-03-17] MED LIST changes: +CIPR7.5D5 AD; -CIPRODEX AD; +LISI10TA22; -LISI10TA4
[2020-03-17 17:45] LABS: ALBUMIN 3.9 GM/DL (3.2-5.2); ALT/SGPT 181 U/L (12-78); BILIRUBIN,TOTAL 0.6 MG/DL (0.2-1.0); BLOOD UREA NITROGEN 12 MG/DL (7-18); CALCIUM LEVEL 9.5 MG/DL (8.5-10.1); CARBON DIOXIDE LEVEL 31 MEQ/L (21-32); CHLORIDE LEVEL 100 MEQ/L (98-107); CHOLESTEROL LEVEL 238 MG/DL (<200); CHOLESTEROL RISK RATIO 4.175 (<5); CREATININE FOR GFR 1.08 MG/DL (0.70-1.30); GLOMERULAR FILTRATION RATE > 60.0 (>60); GLUCOSE, FASTING 112 MG/DL (70-100); HDL CHOLESTEROL 57 MG/DL (>40); LDL CHOLESTEROL 149 MG/DL (<100); NON-HDL-C 181 MG/DL; POTASSIUM SERUM 3.7 MEQ/L (3.5-5.1); SODIUM LEVEL 140 MEQ/L (136-145); TOTAL PROTEIN 7.2 GM/DL (6.4-8.2); TRIGLYCERIDES LEVEL 159 MG/DL (<150)
[2020-03-17 17:53] LABS: TOTAL 25(OH) VITAMIN D 33.7 NG/ML (30.0-100.0)
[2020-03-17 18:13] LABS: MALB URINE SIEMENS 23.9 MG/L; MAU/CREAT RATIO 8.3 MCG/MG (0.0-30.0)
== END ==
LOC: M SFHCPLAZ 14:50
PROVIDERS: ATTEND Physician Assistant
DX: E78.5 Hyperlipidemia, unspecified (principal); E55.9 Vitamin D deficiency, unspecified; I10 Essential (primary) hypertension

== ENCOUNTER 2020-05-27 14:16 | Inpatient (IN) | payer BC, OTHER ==
[~2020-05-27] VITALS: Ht 185.4 cm; Wt 82.7 kg
[~2020-05-27 14:16] MED LIST changes: -OMEP-218; +OMEP-218 PO
[2020-05-27] MEDS ORDERED: MIRTAZAPINE (14:36)
[2020-05-27] MEDS ORDERED: TRAZ-189 PO (14:36)
[2020-05-27] MEDS ORDERED: CLON0.5T2 PO (14:36)
[2020-05-27] MEDS ORDERED: LISI20TA33 PO (14:36)
[2020-05-27] MEDS ORDERED: HYDR50TA70 PO (14:36)
[2020-05-27] MEDS ORDERED: VENL150C43 PO (14:36)
[2020-05-27] MEDS ORDERED: NICOTINE POLACRILEX 2 MG GUM PO ONE ×3 (16:00→23:20)
[2020-05-27 16:33] LABS: HEMATOCRIT 41.3 % (42.0-52.0); HEMOGLOBIN 14.1 g/dl (13.5-17.5); MEAN CORPUSCULAR HEMOGLOBIN 30.3 pg (27.0-33.0); MEAN CORPUSCULAR HGB CONC 34.1 g/dl (32.0-36.5); MEAN CORPUSCULAR VOLUME 88.8 fl (80.0-96.0); PLATELET COUNT, AUTOMATED 342 10^3/uL (150-450); RED BLOOD COUNT 4.65 10^6/uL (4.30-6.10); WHITE BLOOD COUNT 6.6 10^3/uL (4.0-10.0)
[2020-05-27 16:56] LABS: AMPHETAMINES LEVEL URINE NEGATIVE (NEGATIVE); BARBITURATES URINE NEGATIVE (NEGATIVE); BENZODIAZEPINES URINE NEGATIVE (NEGATIVE); CANNABINOIDS URINE POSITIVE (NEGATIVE); COCAINE METABOLITE URINE NEGATIVE (NEGATIVE); METHADONE URINE NEGATIVE (NEGATIVE); OPIATES URINE NEGATIVE (NEGATIVE); PHENCYCLIDINE URINE NEGATIVE (NEGATIVE)
[2020-05-27 17:08] LABS: ACETAMINOPHEN LEVEL < 2.0 UG/ML (10.0-30.0); ALBUMIN 4.4 GM/DL (3.2-5.2); ALT/SGPT 116 U/L (12-78); BILIRUBIN,DIRECT 0.3 MG/DL (0.0-0.2); BILIRUBIN,TOTAL 0.6 MG/DL (0.2-1.0); BLOOD UREA NITROGEN 6 MG/DL (7-18); CALCIUM LEVEL 9.3 MG/DL (8.5-10.1); CARBON DIOXIDE LEVEL 22 MEQ/L (21-32); CHLORIDE LEVEL 102 MEQ/L (98-107); CREATININE FOR GFR 1.05 MG/DL (0.70-1.30); GLOMERULAR FILTRATION RATE > 60.0 (>60); GLUCOSE, FASTING 105 MG/DL (70-100); POTASSIUM SERUM 3.9 MEQ/L (3.5-5.1); SALICYLATE LEVEL < 1.7 MG/DL (5.0-30.0); SODIUM LEVEL 140 MEQ/L (136-145); TOTAL PROTEIN 8.5 GM/DL (6.4-8.2)
[2020-05-27] MEDS ORDERED: AUGMENTIN 875 MG TAB PO ONE (17:10)
[2020-05-27] MEDS: THIAMINE 100 MG TAB PO SCH (21:27)
[2020-05-27] MEDS ORDERED: ONDANSETRON 4 MG ORAL DISINTEGRATING TAB PO ONE (22:35)
[2020-05-28] MEDS: LORazepam 2 MG TAB PO PRN ×4 (00:22→23:10)
[2020-05-28] MEDS ORDERED: OXAZEPAM 15 MG CAP PO ONE (06:30)
[2020-05-28] MEDS ORDERED: LORazepam 2 MG/ML VIAL IV STA (08:21)
[2020-05-28] MEDS ORDERED: NICOTINE POLACRILEX 2 MG GUM PO ONE (08:25)
[2020-05-28] MEDS: THIAMINE 100 MG TAB PO SCH ×2 (08:57→20:09)
[2020-05-28] MEDS ORDERED: MULTIVITAMINS/MINERALS THERAP 1 TAB PO SCH (09:00)
[2020-05-28] MEDS ORDERED: FOLIC ACID 1 MG TAB PO SCH (09:00)
[2020-05-28] MEDS ORDERED: OMEPRAZOLE 20 MG CAP PO ONE (09:05)
[2020-05-28] MEDS ORDERED: VENLAFAXINE **XR** 75MG CAPSULE PO ONE (09:05)
[2020-05-28] MEDS ORDERED: MIRT1TAB15 PO (09:29)
[2020-05-28 11:05] LABS: RSV AMPLIFICATION NEGATIVE (NEGATIVE)
[2020-05-28] MEDS ORDERED: MOM 30ML SUSPENSION UDC PO PRN (11:25)
[2020-05-28] MEDS: OXAZEPAM 15 MG CAP PO SCH ×3 (12:00→23:54)
[2020-05-28] MEDS: AUGMENTIN 875 MG TAB PO SCH ×2 (12:02→20:09)
[2020-05-28] MEDS: ENOXAPARIN 40MG/0.4ML SYRINGE (J1650 PER 10MG) SC SCH (12:02)
[2020-05-28 12:04] LABS: HEPATITIS B SURFACE ANTIGEN NEGATIVE (NEGATIVE)
[2020-05-28 12:07] LABS: INR 1.02; PROTHROMBIN TIME 13.7 SECONDS (12.5-14.3)
[2020-05-28 12:32] LABS: HEPATITIS B CORE ANTIBODY IGM NEGATIVE (NEGATIVE)
[2020-05-28 12:34] LABS: HEPATITIS A ANTIBODY IGM NEGATIVE (NEGATIVE)
[2020-05-28] MEDS: hydrOXYzine 50 MG TAB PO PRN (16:14)
[2020-05-28 17:02] VITALS: BP 157/90
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
[2020-05-28 20:00] VITALS: BP 131/84
--- NOTE | 2020-05-28 20:44 | ECGEPIP ---
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 Order Number: [id number] Reading MD: Felipe Neumann Measurements Intervals [place] Rate: 98 P: 52 AK: 152 QRS: -43 QRSD: 134 T: 104 QT: 418 QTc: 533 Interpretive Statements SINUS RHYTHM LEFT BUNDLE BRANCH BLOCK NO PRIOR Electronically Signed on 05-28-2020 20:44:19 EDT by Felipe Neumann
[2020-05-28 22:40] VITALS: BP 135/83
[2020-05-28] MEDS ORDERED: ACETAMINOPHEN 325 MG TAB PO ONE (23:30)
[2020-05-29] VITALS (10 sets, daily range): BP systolic 121–147; BP diastolic 79–97
[2020-05-29] MEDS: NICOTINE POLACRILEX 2 MG GUM PO PRN ×6 (04:09→21:45)
[2020-05-29] MEDS ORDERED: oxyCODONE 5MG TAB PO ONE (04:20)
[2020-05-29] MEDS: OXAZEPAM 15 MG CAP PO SCH ×3 (06:59→17:39)
--- NOTE | 2020-05-29 08:26 | REP ---
INDICATION: h/o alcoholism . COMPARISON: Comparison CT study 27 December 2018.. TECHNIQUE: Right upper quadrant sonography. FINDINGS: Scanning through the right upper quadrant of the abdomen demonstrates a normal sized, thin-walled gallbladder without evidence of stone or polyp. Common bile duct is normal measuring 0.3 cm in greatest diameter. No focal liver lesion is seen. Liver size is enlarged with 22 cm craniocaudal span. There is increased hepatic echogenicity consistent with fatty infiltration. No pancreatic abnormality is observed. No right renal abnormality is seen. There is no evidence of ascites. The right kidney measures 10.9 by 4.8 x 3.5 cm. IMPRESSION: Evidence of fatty infiltration of the liver with hepatomegaly. Otherwise negative right upper quadrant sonography.. <Electronically signed by Cholo Amaya > 05/29/20 [id number]
[2020-05-29 08:51] LABS: BASO % 0.1 % (0.0-1.0); HEMATOCRIT 40.3 % (42.0-52.0); HEMOGLOBIN 13.6 g/dl (13.5-17.5); LYMPH # 1.2 10^3/uL (1.5-5.0); LYMPH % 12.9 % (24.0-44.0); MEAN CORPUSCULAR HEMOGLOBIN 30.5 pg (27.0-33.0); MEAN CORPUSCULAR HGB CONC 33.7 g/dl (32.0-36.5); MEAN CORPUSCULAR VOLUME 90.4 fl (80.0-96.0); MONO # 0.6 10^3/uL (0.0-0.8); MONO % 6.2 % (2.0-8.0); NEUTROPHILS # 7.3 10^3/uL (1.5-8.5); NEUTROPHILS % 80.2 % (36.0-66.0); PLATELET COUNT, AUTOMATED 201 10^3/uL (150-450); RED BLOOD COUNT 4.46 10^6/uL (4.30-6.10); WHITE BLOOD COUNT 9.1 10^3/uL (4.0-10.0)
[2020-05-29] MEDS ORDERED: VENLAFAXINE **XR** 75MG CAPSULE PO SCH (09:00)
[2020-05-29] MEDS: OMEPRAZOLE 20 MG CAP PO SCH (09:10)
[2020-05-29] MEDS: FOLIC ACID 1 MG TAB PO SCH (09:10)
[2020-05-29] MEDS: AUGMENTIN 875 MG TAB PO SCH ×2 (09:10→19:38)
[2020-05-29] MEDS: THIAMINE 100 MG TAB PO SCH ×2 (09:10→19:38)
[2020-05-29] MEDS: MULTIVITAMINS/MINERALS THERAP 1 TAB PO SCH (09:10)
[2020-05-29] MEDS: ENOXAPARIN 40MG/0.4ML SYRINGE (J1650 PER 10MG) SC SCH (09:11)
[2020-05-29 09:15] LABS: ETHYL ALCOHOL (ETHANOL) < 0.003 % (0.000-0.010)
[2020-05-29 09:26] LABS: ALBUMIN 4.5 GM/DL (3.2-5.2); ALT/SGPT 102 U/L (12-78); BILIRUBIN,TOTAL 2.2 MG/DL (0.2-1.0); BLOOD UREA NITROGEN 11 MG/DL (7-18); CALCIUM LEVEL 9.5 MG/DL (8.5-10.1); CARBON DIOXIDE LEVEL 30 MEQ/L (21-32); CHLORIDE LEVEL 93 MEQ/L (98-107); GLOMERULAR FILTRATION RATE > 60.0 (>60); GLUCOSE, FASTING 108 MG/DL (70-100); MAGNESIUM LEVEL 1.5 MG/DL (1.8-2.4); POTASSIUM SERUM 3.6 MEQ/L (3.5-5.1); SODIUM LEVEL 133 MEQ/L (136-145); TOTAL PROTEIN 8.3 GM/DL (6.4-8.2)
[2020-05-29] MEDS ORDERED: predniSONE 20 MG TAB PO ONE (11:30)
[2020-05-29] MEDS ORDERED: ACETAMINOPHEN TAB 650MG DOSE (2X325MG) PO ONE (11:30)
[2020-05-29] MEDS: NS 1,000 ML IV SCH (11:36)
[2020-05-29] MEDS: MAG SULF 1GM/100ML (MAG RUN) 1 GM in IV 1 EA IV SCH ×2 (11:36→12:44)
[2020-05-29 11:53] LABS: BILIRUBIN,DIRECT 0.7 MG/DL (0.0-0.2)
[2020-05-29 13:28] LABS: LDH LACTATE DEHYDROGENASE 315 U/L (87-241)
[2020-05-29] MEDS ORDERED: COLCHICINE 0.6 MG TABLET PO ONE (14:00)
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
[2020-05-29] MEDS: ACETAMINOPHEN TAB 650MG DOSE (2X325MG) PO PRN ×2 (17:40→21:46)
[2020-05-29] MEDS ORDERED: clonazePAM 0.5 MG TAB PO SCH (21:00)
[2020-05-29] MEDS: MIRTAZAPINE 15 MG TAB PO SCH (21:45)
[2020-05-29] MEDS: traZODone 100 MG TAB PO PRN (22:38)
[2020-05-30] MEDS: NS 1,000 ML IV SCH ×2 (03:30→20:42)
[2020-05-30] MEDS: ACETAMINOPHEN TAB 650MG DOSE (2X325MG) PO PRN ×3 (05:55→18:22)
[2020-05-30 05:56] VITALS: BP 141/99
[2020-05-30 06:00] VITALS: BP 141/99
[2020-05-30] MEDS ORDERED: OXAZEPAM 15 MG CAP PO SCH (06:00)
[2020-05-30] MEDS: NICOTINE POLACRILEX 2 MG GUM PO PRN ×7 (06:14→20:37)
[2020-05-30 06:16] LABS: BASO % 0.3 % (0.0-1.0); EOS % 0.6 % (0.0-3.0); HEMATOCRIT 38.8 % (42.0-52.0); HEMOGLOBIN 12.8 g/dl (13.5-17.5); LYMPH # 2.2 10^3/uL (1.5-5.0); LYMPH % 33.4 % (24.0-44.0); MEAN CORPUSCULAR HEMOGLOBIN 30.3 pg (27.0-33.0); MEAN CORPUSCULAR VOLUME 91.7 fl (80.0-96.0); MONO # 0.4 10^3/uL (0.0-0.8); MONO % 6.6 % (2.0-8.0); NEUTROPHILS # 3.8 10^3/uL (1.5-8.5); NEUTROPHILS % 58.5 % (36.0-66.0); PLATELET COUNT, AUTOMATED 176 10^3/uL (150-450); RED BLOOD COUNT 4.23 10^6/uL (4.30-6.10); WHITE BLOOD COUNT 6.5 10^3/uL (4.0-10.0)
[2020-05-30 06:43] LABS: ALT/SGPT 103 U/L (12-78); BILIRUBIN,TOTAL 1.6 MG/DL (0.2-1.0); BLOOD UREA NITROGEN 11 MG/DL (7-18); CALCIUM LEVEL 9.7 MG/DL (8.5-10.1); CARBON DIOXIDE LEVEL 33 MEQ/L (21-32); CHLORIDE LEVEL 100 MEQ/L (98-107); CREATININE FOR GFR 0.89 MG/DL (0.70-1.30); GLOMERULAR FILTRATION RATE > 60.0 (>60); GLUCOSE, FASTING 101 MG/DL (70-100); MAGNESIUM LEVEL 2.5 MG/DL (1.8-2.4); POTASSIUM SERUM 3.1 MEQ/L (3.5-5.1); SODIUM LEVEL 137 MEQ/L (136-145); TOTAL PROTEIN 8.2 GM/DL (6.4-8.2)
[2020-05-30] MEDS ORDERED: POTASSIUM CHLORIDE 10 MEQ SR TABLET PO ONE (07:15)
[2020-05-30 08:00] VITALS: BP 140/95
[2020-05-30] MEDS: THIAMINE 100 MG TAB PO SCH ×2 (08:25→20:36)
[2020-05-30] MEDS: COLCHICINE 0.6 MG TABLET PO SCH (08:25)
[2020-05-30] MEDS: MULTIVITAMINS/MINERALS THERAP 1 TAB PO SCH (08:25)
[2020-05-30] MEDS: AUGMENTIN 875 MG TAB PO SCH ×2 (08:25→20:36)
[2020-05-30] MEDS: OMEPRAZOLE 20 MG CAP PO SCH (08:26)
[2020-05-30] MEDS: FOLIC ACID 1 MG TAB PO SCH (08:26)
[2020-05-30] MEDS: ENOXAPARIN 40MG/0.4ML SYRINGE (J1650 PER 10MG) SC SCH (08:26)
[2020-05-30] MEDS: VENLAFAXINE **XR** 75MG CAPSULE PO SCH (08:53)
[2020-05-30] MEDS: predniSONE 20 MG TAB PO SCH (08:53)
[2020-05-30 09:02] LABS: HIV 1&2 SCREEN CENTAUR NEGATIVE (NEGATIVE)
[2020-05-30] MEDS: hydrOXYzine 50 MG TAB PO PRN (13:00)
[2020-05-30 14:00] VITALS: BP 127/90
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
[2020-05-30 16:48] VITALS: BP 130/91
[2020-05-30] MEDS ORDERED: OXAZEPAM 10 MG CAP PO SCH ×2 (18:00→21:00)
[2020-05-30] MEDS: MIRTAZAPINE 15 MG TAB PO SCH (20:36)
--- NOTE | 2020-05-30 20:39 | ECGEPIP ---
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
[2020-05-30] MEDS: traZODone 100 MG TAB PO PRN (20:41)
[2020-05-30 22:00] VITALS: BP 131/81
[2020-05-31 06:00] VITALS: BP 142/76
[2020-05-31 06:16] LABS: BASO % 0.4 % (0.0-1.0); EOS % 0.7 % (0.0-3.0); HEMATOCRIT 35.1 % (42.0-52.0); HEMOGLOBIN 11.5 g/dl (13.5-17.5); LYMPH % 35.9 % (24.0-44.0); MEAN CORPUSCULAR HEMOGLOBIN 30.3 pg (27.0-33.0); MEAN CORPUSCULAR HGB CONC 32.8 g/dl (32.0-36.5); MEAN CORPUSCULAR VOLUME 92.4 fl (80.0-96.0); MONO # 0.5 10^3/uL (0.0-0.8); MONO % 8.1 % (2.0-8.0); NEUTROPHILS # 3.1 10^3/uL (1.5-8.5); NEUTROPHILS % 54.4 % (36.0-66.0); PLATELET COUNT, AUTOMATED 143 10^3/uL (150-450); WHITE BLOOD COUNT 5.7 10^3/uL (4.0-10.0)
[2020-05-31 06:41] LABS: ALBUMIN 3.4 GM/DL (3.2-5.2); ALT/SGPT 97 U/L (12-78); BILIRUBIN,TOTAL 0.7 MG/DL (0.2-1.0); BLOOD UREA NITROGEN 12 MG/DL (7-18); CALCIUM LEVEL 8.6 MG/DL (8.5-10.1); CARBON DIOXIDE LEVEL 30 MEQ/L (21-32); CHLORIDE LEVEL 106 MEQ/L (98-107); CREATININE FOR GFR 0.78 MG/DL (0.70-1.30); GLOMERULAR FILTRATION RATE > 60.0 (>60); GLUCOSE, FASTING 91 MG/DL (70-100); MAGNESIUM LEVEL 2.1 MG/DL (1.8-2.4); POTASSIUM SERUM 3.3 MEQ/L (3.5-5.1); SODIUM LEVEL 142 MEQ/L (136-145); TOTAL PROTEIN 6.9 GM/DL (6.4-8.2)
[2020-05-31] MEDS ORDERED: POTASSIUM CHLORIDE 10 MEQ SR TABLET PO ONE (07:10)
[2020-05-31] MEDS: ACETAMINOPHEN TAB 650MG DOSE (2X325MG) PO PRN (07:49)
[2020-05-31] MEDS ORDERED: COLC0.6T47 PO (08:56)
[2020-05-31] MEDS ORDERED: CVS1CAP2 PO (08:56)
[2020-05-31] MEDS ORDERED: AMOX875T2 PO (08:56)
[2020-05-31] MEDS ORDERED: PRED10TA2 PO (08:56)
[2020-05-31] MEDS: ENOXAPARIN 40MG/0.4ML SYRINGE (J1650 PER 10MG) SC SCH (09:00)
[2020-05-31] MEDS ORDERED: LACTOBACILLUS ACIDOPHILUS CAP (BACID) PO SCH (09:00)
[2020-05-31] MEDS: AUGMENTIN 875 MG TAB PO SCH (09:29)
[2020-05-31] MEDS: FOLIC ACID 1 MG TAB PO SCH (09:29)
[2020-05-31] MEDS: MULTIVITAMINS/MINERALS THERAP 1 TAB PO SCH (09:29)
[2020-05-31 09:30] VITALS: BP 152/98
[2020-05-31] MEDS: VENLAFAXINE **XR** 75MG CAPSULE PO SCH (09:30)
[2020-05-31] MEDS: OMEPRAZOLE 20 MG CAP PO SCH (09:30)
[2020-05-31] MEDS: predniSONE 20 MG TAB PO SCH (09:30)
[2020-05-31] MEDS: COLCHICINE 0.6 MG TABLET PO SCH (09:31)
[2020-05-31] MEDS: THIAMINE 100 MG TAB PO SCH (09:31)
[2020-05-31] MEDS: NICOTINE POLACRILEX 2 MG GUM PO PRN (09:42)
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
== END 2020-05-31 11:07 | disposition home or self-care (01) | DRG 775 ==
LOC: M ED 14:16 → M ED INP 05-28 09:07 → ENRESERV 05-28 15:35 → M PCU 05-28 16:57 → M MSPAV 05-29 22:20
PROVIDERS: ADMIT Internal Medicine; ATTEND Internal Medicine
DX: F10.132 Alcohol abuse with withdrawal with perceptual disturbance (principal); R45.851 Suicidal ideations; K76.0 Fatty (change of) liver, not elsewhere classified; D64.9 Anemia, unspecified; I10 Essential (primary) hypertension; S41.151A Open bite of right upper arm, initial encounter; K70.10 Alcoholic hepatitis without ascites; R74.01 Elevation of levels of liver transaminase levels; M10.9 Gout, unspecified; F41.9 Anxiety disorder, unspecified; F32.9 Major depressive disorder, single episode, unspecified; K21.9 Gastro-esophageal reflux disease without esophagitis; G47.33 Obstructive sleep apnea (adult) (pediatric); F17.210 Nicotine dependence, cigarettes, uncomplicated; F17.290 Nicotine dependence, other tobacco product, uncomplicated; F17.220 Nicotine dependence, chewing tobacco, uncomplicated; Y04.1XXA Assault by human bite, initial encounter; Y92.009 Unspecified place in unspecified non-institutional (private) residence as the place of occurrence of the external cause; M25.571 Pain in right ankle and joints of right foot; Z87.442 Personal history of urinary calculi; Z90.49 Acquired absence of other specified parts of digestive tract; Z91.19 Patient's noncompliance with other medical treatment and regimen; Z79.899 Other long term (current) drug therapy; Z88.8 Allergy status to other drugs, medicaments and biological substances; S41.152A Open bite of left upper arm, initial encounter; Z20.822 Contact with and (suspected) exposure to COVID-19

== ENCOUNTER 2021-02-28 13:20 | Inpatient (IN) | payer BC, OTHER ==
[~2021-02-28] VITALS: Ht 185.4 cm; Wt 83.5 kg
[~2021-02-28 13:20] MED LIST changes: +AMOX875T2 PO; +CLON0.5T2 PO; +COLC0.6T47 PO; +CVS1CAP2 PO; +HYDR50TA70 PO; +LISI20TA33 PO; +MIRT1TAB15 PO; +MIRTAZAPINE; +OMEP-173 PO; -OMEP-218 PO; +PRED10TA2 PO; -PSEU30TA85 PO; +PSEU30TA86 PO; +TRAZ-189 PO; +VENL150C43 PO
[2021-02-28] MEDS ORDERED: MULTIVITAMIN -ADULT INJECTION 10 ML, THIAMINE INJection 100 MG, FOLIC ACID 1 MG in NS 1... IV ONE (13:40)
[2021-02-28] MEDS ORDERED: ONDANSETRON 4MG/2ML VIAL IV ONE (13:45)
[2021-02-28 14:18] LABS: BASO % 0.2 % (0.0-1.0); EOS % 0.2 % (0.0-3.0); HEMATOCRIT 37.2 % (42.0-52.0); HEMOGLOBIN 12.6 g/dl (13.5-17.5); LYMPH # 0.1 10^3/uL (1.5-5.0); LYMPH % 1.6 % (24.0-44.0); MEAN CORPUSCULAR HEMOGLOBIN 30.4 pg (27.0-33.0); MEAN CORPUSCULAR HGB CONC 33.9 g/dl (32.0-36.5); MEAN CORPUSCULAR VOLUME 89.9 fl (80.0-96.0); MONO # 0.3 10^3/uL (0.0-0.8); MONO % 4.6 % (2.0-8.0); NEUTROPHILS # 5.1 10^3/uL (1.5-8.5); NEUTROPHILS % 89.7 % (36.0-66.0); PLATELET COUNT, AUTOMATED 203 10^3/uL (150-450); RED BLOOD COUNT 4.14 10^6/uL (4.30-6.10); WHITE BLOOD COUNT 5.6 10^3/uL (4.0-10.0)
[2021-02-28] MEDS ORDERED: GI COCKTAIL 50ML BTL(HYOSCYAMINE/MAALOX/LIDOCAINE VISCOUS)(1:3:1) PO ONE (14:20)
[2021-02-28 15:14] LABS: ALBUMIN 3.7 GM/DL (3.2-5.2); BILIRUBIN,DIRECT 2.3 MG/DL (0.0-0.2); CALCIUM LEVEL 10.1 MG/DL (8.5-10.1); CREATININE FOR GFR 9.89 MG/DL (0.70-1.30); GLOMERULAR FILTRATION RATE 6.4 (>60); POTASSIUM SERUM 3.3 MEQ/L (3.5-5.1); TOTAL PROTEIN 7.7 GM/DL (6.4-8.2)
[2021-02-28] MEDS ORDERED: LIDOCAINE 2% 5ML JELLY UROJET TOP ONE (15:15)
[2021-02-28] MEDS: MORPHINE 2 MG/ML 1ML VIAL (J2270) IV PRN ×3 (15:47→21:36)
[2021-02-28] MEDS ORDERED: NS 1,000 ML IV SCH (16:20)
[2021-02-28] MEDS ORDERED: MIRT-62 PO (17:59)
[2021-02-28] MEDS ORDERED: HOME MED LIST COMPLETE! XX SCH (18:00)
[2021-02-28 21:28] VITALS: BP 116/71
[2021-02-28] MEDS: PANTOPRAZOLE 40MG VIAL (C9113 PER 1) IV SCH (21:34)
[2021-02-28] MEDS: KCL 10MEQ/100ML SWI (KRUN) 10 MEQ in IV 1 EA IV SCH ×2 (21:35→23:24)
[2021-02-28] MEDS: HEPARIN SOD (PORCINE) 5000UNITS/ML 1ML VIAL/SYRINGE SC SCH (21:35)
[2021-02-28] MEDS: LR 1,000 ML IV SCH (22:00)
[2021-03-01] VITALS: BP 109/65
[2021-03-01] MEDS: KCL 10MEQ/100ML SWI (KRUN) 10 MEQ in IV 1 EA IV SCH ×2 (00:46→02:00)
[2021-03-01] MEDS: LR 1,000 ML IV SCH ×5 (02:00→15:37)
[2021-03-01] MEDS: MORPHINE 2 MG/ML 1ML VIAL (J2270) IV PRN ×5 (02:55→22:24)
[2021-03-01 04:00] VITALS: BP_SYST 105; BP_SYST 109; BP_DIAS 61; BP_DIAS 65
[2021-03-01] MEDS: ONDANSETRON 4MG/2ML VIAL IV PRN ×2 (05:16→20:48)
[2021-03-01 07:06] LABS: HEMATOCRIT 32.8 % (42.0-52.0); HEMOGLOBIN 10.8 g/dl (13.5-17.5); MEAN CORPUSCULAR HEMOGLOBIN 30.3 pg (27.0-33.0); MEAN CORPUSCULAR HGB CONC 32.9 g/dl (32.0-36.5); MEAN CORPUSCULAR VOLUME 92.1 fl (80.0-96.0); PLATELET COUNT, AUTOMATED 131 10^3/uL (150-450); RED BLOOD COUNT 3.56 10^6/uL (4.30-6.10); WHITE BLOOD COUNT 7.4 10^3/uL (4.0-10.0)
[2021-03-01 07:33] LABS: ALBUMIN 2.8 GM/DL (3.2-5.2); BILIRUBIN,TOTAL 3.1 MG/DL (0.2-1.0); CALCIUM LEVEL 8.2 MG/DL (8.5-10.1); CREATININE FOR GFR 9.31 MG/DL (0.70-1.30); GLOMERULAR FILTRATION RATE 6.9 (>60); MAGNESIUM LEVEL 1.7 MG/DL (1.8-2.4); POTASSIUM SERUM 4.3 MEQ/L (3.5-5.1); TOTAL PROTEIN 6.3 GM/DL (6.4-8.2)
[2021-03-01 07:42] VITALS: BP 118/69
[2021-03-01] MEDS ORDERED: MAG SULF 1GM/100ML (MAG RUN) 1 GM in IV 1 EA IV ONE (08:00)
[2021-03-01] MEDS ORDERED: traZODone 100 MG TAB PO PRN (08:05)
[2021-03-01] MEDS: PANTOPRAZOLE 40MG VIAL (C9113 PER 1) IV SCH ×2 (08:29→21:09)
[2021-03-01] MEDS: VENLAFAXINE **XR** 75MG CAPSULE PO SCH (08:32)
[2021-03-01] MEDS: HEPARIN SOD (PORCINE) 5000UNITS/ML 1ML VIAL/SYRINGE SC SCH ×2 (08:33→20:48)
[2021-03-01] MEDS: clonazePAM 0.5 MG TAB PO PRN ×2 (11:26→20:47)
[2021-03-01 12:00] VITALS: BP 114/66
[2021-03-01 16:00] VITALS: BP 129/73
[2021-03-01] MEDS: D5W/LR 1,000 ML IV SCH ×2 (18:28→22:16)
[2021-03-01 20:00] VITALS: BP 128/76
[2021-03-01] MEDS: MIRTAZAPINE 15 MG TAB PO SCH (20:46)
[2021-03-01] MEDS: ACETAMINOPHEN TAB 650MG DOSE (2X325MG) PO PRN (20:47)
[2021-03-02] VITALS: BP 131/72
[2021-03-02] MEDS: D5W/LR 1,000 ML IV SCH ×2 (02:00→06:36)
[2021-03-02] MEDS: MORPHINE 2 MG/ML 1ML VIAL (J2270) IV PRN ×4 (02:03→21:08)
[2021-03-02] MEDS ORDERED: MORPHINE 4 MG/ML 1ML VIAL/SYRINGE (J2270) IV PRN ×2 (02:10→08:00)
[2021-03-02 04:00] VITALS: BP 120/88
[2021-03-02] MEDS: NICOTINE 21MG/24HR 1 EA TRANSDERMAL TD PRN (04:46)
[2021-03-02] MEDS: ACETAMINOPHEN TAB 650MG DOSE (2X325MG) PO PRN ×2 (05:03→05:57)
[2021-03-02] MEDS: hydrOXYzine 50 MG TAB PO PRN ×2 (05:03→15:42)
[2021-03-02] MEDS: ONDANSETRON 4MG/2ML VIAL IV PRN ×2 (05:07→12:07)
[2021-03-02 06:12] LABS: HEMATOCRIT 29.9 % (42.0-52.0); HEMOGLOBIN 9.8 g/dl (13.5-17.5); MEAN CORPUSCULAR HEMOGLOBIN 30.2 pg (27.0-33.0); MEAN CORPUSCULAR HGB CONC 32.8 g/dl (32.0-36.5); MEAN CORPUSCULAR VOLUME 92.3 fl (80.0-96.0); PLATELET COUNT, AUTOMATED 155 10^3/uL (150-450); RED BLOOD COUNT 3.24 10^6/uL (4.30-6.10); WHITE BLOOD COUNT 9.1 10^3/uL (4.0-10.0)
[2021-03-02 06:43] LABS: ALBUMIN 2.5 GM/DL (3.2-5.2); BILIRUBIN,TOTAL 2.7 MG/DL (0.2-1.0); CALCIUM LEVEL 9.1 MG/DL (8.5-10.1); CREATININE FOR GFR 2.16 MG/DL (0.70-1.30); MAGNESIUM LEVEL 1.8 MG/DL (1.8-2.4); TOTAL PROTEIN 6.2 GM/DL (6.4-8.2)
[2021-03-02 07:40] VITALS: BP 123/60
[2021-03-02] MEDS ORDERED: D5W/LR 1,000 ML IV SCH (08:20)
[2021-03-02] MEDS: VENLAFAXINE **XR** 75MG CAPSULE PO SCH (08:37)
[2021-03-02] MEDS: PANTOPRAZOLE 40MG VIAL (C9113 PER 1) IV SCH ×2 (08:38→20:45)
[2021-03-02] MEDS: HEPARIN SOD (PORCINE) 5000UNITS/ML 1ML VIAL/SYRINGE SC SCH ×2 (08:38→20:46)
[2021-03-02] MEDS: clonazePAM 0.5 MG TAB PO PRN ×2 (09:31→21:08)
[2021-03-02 12:15] VITALS: BP 130/77
[2021-03-02 14:00] VITALS: BP 129/82
[2021-03-02] MEDS: MIRTAZAPINE 15 MG TAB PO SCH (20:45)
[2021-03-02 20:49] VITALS: BP 135/84
[2021-03-03] MEDS: hydrOXYzine 50 MG TAB PO PRN (01:32)
[2021-03-03] MEDS: MORPHINE 2 MG/ML 1ML VIAL (J2270) IV PRN (01:33)
[2021-03-03 05:48] VITALS: BP 113/81
[2021-03-03 06:23] LABS: HEMATOCRIT 27.7 % (42.0-52.0); HEMOGLOBIN 9.2 g/dl (13.5-17.5); MEAN CORPUSCULAR HEMOGLOBIN 30.2 pg (27.0-33.0); MEAN CORPUSCULAR HGB CONC 33.2 g/dl (32.0-36.5); MEAN CORPUSCULAR VOLUME 90.8 fl (80.0-96.0); PLATELET COUNT, AUTOMATED 214 10^3/uL (150-450); RED BLOOD COUNT 3.05 10^6/uL (4.30-6.10); WHITE BLOOD COUNT 10.3 10^3/uL (4.0-10.0)
[2021-03-03 07:11] LABS: ALBUMIN 2.5 GM/DL (3.2-5.2); ALT/SGPT 56 U/L (12-78); BILIRUBIN,TOTAL 3.5 MG/DL (0.2-1.0); BLOOD UREA NITROGEN 21 MG/DL (7-18); CALCIUM LEVEL 8.2 MG/DL (8.5-10.1); CARBON DIOXIDE LEVEL 31 MEQ/L (21-32); CHLORIDE LEVEL 99 MEQ/L (98-107); CREATININE FOR GFR 0.92 MG/DL (0.70-1.30); GLOMERULAR FILTRATION RATE > 60.0 (>60); GLUCOSE, FASTING 105 MG/DL (70-100); LIPASE 240 U/L (73-393); MAGNESIUM LEVEL 1.5 MG/DL (1.8-2.4); POTASSIUM SERUM 3.4 MEQ/L (3.5-5.1); SODIUM LEVEL 137 MEQ/L (136-145); TOTAL PROTEIN 5.7 GM/DL (6.4-8.2)
[2021-03-03] MEDS: HEPARIN SOD (PORCINE) 5000UNITS/ML 1ML VIAL/SYRINGE SC SCH (08:40)
[2021-03-03] MEDS: NICOTINE 21MG/24HR 1 EA TRANSDERMAL TD PRN (08:41)
[2021-03-03] MEDS: VENLAFAXINE **XR** 75MG CAPSULE PO SCH (08:41)
[2021-03-03] MEDS: PANTOPRAZOLE 40MG VIAL (C9113 PER 1) IV SCH (08:41)
[2021-03-03] MEDS: ACETAMINOPHEN TAB 650MG DOSE (2X325MG) PO PRN (08:41)
[2021-03-03] MEDS: clonazePAM 0.5 MG TAB PO PRN (08:50)
[2021-03-03] MEDS ORDERED: POTASSIUM CHLORIDE 10MEQ SR TABLET PO ONE (09:10)
[2021-03-03] MEDS ORDERED: MAGNESIUM OXIDE 400MG TAB (MAG-OX) PO ONE (09:10)
[2021-03-03] MEDS ORDERED: NORV5TAB PO ×2 (12:51→15:31)
[2021-03-03] MEDS ORDERED: MAGN400T2 PO (15:30)
== END 2021-03-03 13:10 | disposition home or self-care (01) | DRG 282 ==
LOC: EDBD 13:20 → M ED 13:20 → M ED INP 16:25 → M PCU 21:45 → M MS5PR 03-02 13:52
PROVIDERS: ADMIT Internal Medicine; ATTEND Internal Medicine
DX: K85.20 Alcohol induced acute pancreatitis without necrosis or infection (principal); N17.9 Acute kidney failure, unspecified; E87.3 Alkalosis; I50.32 Chronic diastolic (congestive) heart failure; E83.42 Hypomagnesemia; K76.0 Fatty (change of) liver, not elsewhere classified; I11.0 Hypertensive heart disease with heart failure; F10.10 Alcohol abuse, uncomplicated; K21.9 Gastro-esophageal reflux disease without esophagitis; D64.9 Anemia, unspecified; F41.9 Anxiety disorder, unspecified; R74.01 Elevation of levels of liver transaminase levels; E87.1 Hypo-osmolality and hyponatremia; F32.A Depression, unspecified; E86.0 Dehydration; G47.33 Obstructive sleep apnea (adult) (pediatric); E87.6 Hypokalemia; M10.9 Gout, unspecified; Z87.442 Personal history of urinary calculi; Z90.49 Acquired absence of other specified parts of digestive tract; Z79.899 Other long term (current) drug therapy

== ENCOUNTER → 2021-05-01 | Outpatient (CLI) | payer OTHER ==
[~2021-05-01] MED LIST changes: +MAGN400T2 PO; +MIRT-62 PO; +NORV5TAB PO
[2021-05-01 17:43] LABS: ALBUMIN 3.9 GM/DL (3.2-5.2); ALT/SGPT 116 U/L (12-78); AMYLASE 32 U/L (25-115); BILIRUBIN,TOTAL 0.8 MG/DL (0.2-1.0); BLOOD UREA NITROGEN 4 MG/DL (7-18); CALCIUM LEVEL 9.4 MG/DL (8.5-10.1); CARBON DIOXIDE LEVEL 27 MEQ/L (21-32); CHLORIDE LEVEL 102 MEQ/L (98-107); CREATININE FOR GFR 0.76 MG/DL (0.70-1.30); GLOMERULAR FILTRATION RATE > 60.0 (>60); GLUCOSE, FASTING 109 MG/DL (70-100); LIPASE 42 U/L (73-393); MAGNESIUM LEVEL 1.8 MG/DL (1.8-2.4); POTASSIUM SERUM 4.6 MEQ/L (3.5-5.1); SODIUM LEVEL 136 MEQ/L (136-145); TOTAL PROTEIN 7.9 GM/DL (6.4-8.2)
== END ==
LOC: M PLALAB 14:31
DX: F10.10 Alcohol abuse, uncomplicated (principal); Z87.19 Personal history of other diseases of the digestive system; E83.42 Hypomagnesemia

== ENCOUNTER → 2021-09-17 | Outpatient (CLI) | payer OTHER ==
[2021-09-17 16:30] LABS: ALBUMIN 3.4 GM/DL (3.2-5.2); ALT/SGPT 55 U/L (12-78); BILIRUBIN,TOTAL 1.4 MG/DL (0.2-1.0); BLOOD UREA NITROGEN 7 MG/DL (7-18); CALCIUM LEVEL 9.2 MG/DL (8.5-10.1); CARBON DIOXIDE LEVEL 31 MEQ/L (21-32); CHLORIDE LEVEL 100 MEQ/L (98-107); CREATININE FOR GFR 0.68 MG/DL (0.70-1.30); GLOMERULAR FILTRATION RATE > 60.0 (>60); GLUCOSE, FASTING 148 MG/DL (70-100); POTASSIUM SERUM 3.9 MEQ/L (3.5-5.1); SODIUM LEVEL 137 MEQ/L (136-145); TOTAL PROTEIN 7.5 GM/DL (6.4-8.2)
== END ==
LOC: M PLALAB 10:02
PROVIDERS: ATTEND Physician Assistant
DX: K76.0 Fatty (change of) liver, not elsewhere classified (principal)

== ENCOUNTER 2022-04-30 09:02 | Emergency (ER) | payer OTHER ==
[~2022-04-30] VITALS: Ht 185.4 cm; Wt 83.8 kg
[2022-04-30] MEDS ORDERED: NS 1,000 ML IV SCH (10:50)
[2022-04-30 11:22] LABS: BASO # 0.1 10^3/uL (0.0-0.2); BASO % 0.5 % (0.0-1.0); EOS # 0.1 10^3/uL (0.0-0.5); EOS % 0.5 % (0.0-3.0); HEMATOCRIT 32.4 % (42.0-52.0); LYMPH # 1.5 10^3/uL (1.5-5.0); LYMPH % 7.6 % (24.0-44.0); MEAN CORPUSCULAR HEMOGLOBIN 35.5 pg (27.0-33.0); MEAN CORPUSCULAR VOLUME 104.5 fl (80.0-96.0); MONO # 1.3 10^3/uL (0.0-0.8); MONO % 6.9 % (2.0-8.0); NEUTROPHILS # 15.8 10^3/uL (1.5-8.5); NEUTROPHILS % 81.9 % (36.0-66.0); PLATELET COUNT, AUTOMATED 236 10^3/uL (150-450); WHITE BLOOD COUNT 19.4 10^3/uL (4.0-10.0)
[2022-04-30] MEDS ORDERED: PIPERACILLIN/TAZOBACTAM SOD 4.5 GM in D5W MINI-BAG PLUS 50 ML IV ONE (11:30)
[2022-04-30 11:35] LABS: INR 2.27; PROTHROMBIN TIME 25.4 SECONDS (12.5-14.5)
[2022-04-30 11:37] LABS: PARTIAL THROMBOPLASTIN TIME 70.6 SECONDS (24.8-34.2)
[2022-04-30] MEDS ORDERED: ISOVUE-370 76% 100ML VIAL As Ordered ONE (11:37)
[2022-04-30 11:43] LABS: LIPASE 30 U/L (12-53)
[2022-04-30 11:43] LABS: ETHYL ALCOHOL (ETHANOL) 0.005 % (0.000-0.010)
[2022-04-30 11:45] LABS: AMYLASE 60 U/L (30-118); CPK CREATINE PHOSPHOKINASE 42 U/L (46-171)
[2022-04-30 11:49] LABS: ACETAMINOPHEN LEVEL 10.3 UG/ML (10.0-20.0); SALICYLATE LEVEL < 3.0 MG/DL (<30)
[2022-04-30 11:51] LABS: ALBUMIN 2.6 G/DL (3.2-5.2); ALKALINE PHOSPHATASE 166 U/L (46-116); ALT/SGPT 56 U/L (7.0-40); AST/SGOT 141 U/L (<34); BILIRUBIN,DIRECT 12.2 MG/DL (<0.4); BILIRUBIN,TOTAL 19.1 MG/DL (0.3-1.2); BLOOD UREA NITROGEN 6 MG/DL (9-23); CALCIUM LEVEL 8.4 MG/DL (8.5-10.1); CARBON DIOXIDE LEVEL 31 MMOL/L (20-31); CHLORIDE LEVEL 89 MMOL/L (98-107); CK-MB VALUE MASS < 1.0 NG/ML (<3.6); CREATININE FOR GFR 0.54 MG/DL (0.70-1.30); GLOMERULAR FILTRATION RATE > 60.0 (>60); GLUCOSE, FASTING 169 MG/DL (60-100); MB/CK RELATIVE INDEX 2.38 (< OR =4); POTASSIUM SERUM 2.8 MMOL/L (3.5-5.1); SODIUM LEVEL 129 MMOL/L (136-145); TOTAL PROTEIN 6.9 G/DL (5.7-8.2)
[2022-04-30] MEDS ORDERED: KCL 10MEQ/100ML SWI (KRUN) 10 MEQ in IV 1 EA IV ONE (11:55)
[2022-04-30 11:59] LABS: HEPATITIS B SURFACE ANTIGEN NEGATIVE (NEGATIVE)
[2022-04-30 12:19] LABS: MAGNESIUM LEVEL 1.9 MG/DL (1.8-2.4)
[2022-04-30 12:20] LABS: HEPATITIS B CORE ANTIBODY IGM NEGATIVE (NEGATIVE); HEPATITIS C VIRUS ABY INDEX 0.1 INDEX (<0.8)
[2022-04-30] MEDS ORDERED: POTASSIUM CHLORIDE 10MEQ SR TABLET PO ONE (13:55)
[2022-04-30] MEDS ORDERED: D5W/0.45% SODIUM CHLORIDE 1,000 ML IV ONE (14:00)
[2022-04-30 14:13] LABS: RSV AMPLIFICATION NEGATIVE (NEGATIVE)
[2022-04-30 15:19] VITALS: BP 121/70
== END 2022-04-30 15:21 | disposition short-term general hospital (02) ==
LOC: M ED 09:02
DX: K81.0 Acute cholecystitis (principal); R17 Unspecified jaundice; K70.10 Alcoholic hepatitis without ascites; D68.9 Coagulation defect, unspecified; K66.1 Hemoperitoneum; E87.6 Hypokalemia; I10 Essential (primary) hypertension; F32.A Depression, unspecified; F41.9 Anxiety disorder, unspecified; Z79.899 Other long term (current) drug therapy
CPT/HCPCS: 71045; 74177; 76705; 80047; 80048; 80076; 80143; 81001; 82077; 82140; 82150; 82550; 82553; 83605; 83690; 83735; 85025; 85610; 85730; 86705; 86709; 86803; 86850; 86900; 86901; 87040; 87340; 87631; 93005; 93041; 96365; 96367; 99285; J2543; Q9967

== ENCOUNTER 2022-05-19 17:40 | Emergency (ER) | payer OTHER ==
[~2022-05-19] VITALS: Ht 185.4 cm; Wt 79.0 kg
[~2022-05-19 17:40] MED LIST changes: -METF500T13 PO
[2022-05-19] MEDS ORDERED: NS 1,000 ML IV ONE ×2 (18:40)
[2022-05-19 18:56] LABS: VENOUS BASE EXCESS 6.8 (-2.0-2.0); VENOUS HCO3 30.5 MEQ/L (23.0-27.0); VENOUS O2 SATURATION 99.4 % (60.0-80.0); VENOUS PARTIAL PRESSURE CO2 40.1 mmHg (38.0-50.0); VENOUS PARTIAL PRESSURE O2 190.8 mmHg (30.0-50.0); VENOUS PH 7.499 UNITS (7.330-7.430); VENOUS STANDARD HCO3 30.7 MEQ/L; VENOUS TOTAL CO2 31.7 MEQ/L (24.0-28.0)
[2022-05-19 19:04] LABS: BASO % 0.1 % (0.0-1.0); HEMATOCRIT 30.1 % (42.0-52.0); HEMOGLOBIN 10.1 g/dl (13.5-17.5); LYMPH # 1.3 10^3/uL (1.5-5.0); LYMPH % 14.1 % (24.0-44.0); MEAN CORPUSCULAR HEMOGLOBIN 35.1 pg (27.0-33.0); MEAN CORPUSCULAR HGB CONC 33.6 g/dl (32.0-36.5); MEAN CORPUSCULAR VOLUME 104.5 fl (80.0-96.0); MONO # 0.5 10^3/uL (0.0-0.8); MONO % 5.5 % (2.0-8.0); NEUTROPHILS # 7.4 10^3/uL (1.5-8.5); PLATELET COUNT, AUTOMATED 135 10^3/uL (150-450); RED BLOOD COUNT 2.88 10^6/uL (4.30-6.10); WHITE BLOOD COUNT 9.2 10^3/uL (4.0-10.0)
[2022-05-19 19:27] LABS: LIPASE 20 U/L (12-53)
[2022-05-19 19:34] LABS: ALBUMIN 2.9 G/DL (3.2-5.2); ALKALINE PHOSPHATASE 228 U/L (46-116); ALT/SGPT 96 U/L (7.0-40); AST/SGOT 95 U/L (<34); BILIRUBIN,DIRECT 5.9 MG/DL (<0.4); BILIRUBIN,TOTAL 7.8 MG/DL (0.3-1.2); BLOOD UREA NITROGEN 10 MG/DL (9-23); CALCIUM LEVEL 8.5 MG/DL (8.5-10.1); CARBON DIOXIDE LEVEL 29 MMOL/L (20-31); CHLORIDE LEVEL 94 MMOL/L (98-107); CREATININE FOR GFR 0.42 MG/DL (0.70-1.30); GLOMERULAR FILTRATION RATE > 60.0 (>60); GLUCOSE, FASTING 538 MG/DL (60-100); POTASSIUM SERUM 3.9 MMOL/L (3.5-5.1); SODIUM LEVEL 132 MMOL/L (136-145); TOTAL PROTEIN 6.7 G/DL (5.7-8.2)
[2022-05-19 19:38] LABS: INR 1.54; PARTIAL THROMBOPLASTIN TIME 36.4 SECONDS (24.8-34.2); PROTHROMBIN TIME 18.8 SECONDS (12.5-14.5)
[2022-05-19 20:06] LABS: HEMOGLOBIN A1c 6.4 % (4.0-6.0)
[2022-05-19] MEDS ORDERED: ISOVUE-370 76% 100ML VIAL As Ordered ONE (20:28)
[2022-05-19] MEDS ORDERED: HumuLIN R (REGULAR) INSULIN (NovoLIN R) **100U/ML** PER UNIT IV ONE (20:35)
[2022-05-19] MEDS ORDERED: METF500T13 PO (22:38)
[2022-05-19 22:52] VITALS: BP 147/87
== END 2022-05-19 22:54 | disposition home or self-care (01) ==
LOC: M ED 17:40
DX: R73.9 Hyperglycemia, unspecified (principal); I10 Essential (primary) hypertension; F41.9 Anxiety disorder, unspecified; F32.9 Major depressive disorder, single episode, unspecified; Z79.899 Other long term (current) drug therapy
CPT/HCPCS: 74177; 80048; 80076; 81001; 82803; 83036; 83690; 85025; 85610; 85730; 93041; 94760; 96374; 99285; J1815; Q9967

== ENCOUNTER → 2022-05-19 | Outpatient (CLI) | payer OTHER ==
[~2022-05-19] MED LIST changes: +METF500T13 PO
[2022-05-19 15:07] LABS: BASO % 0.1 % (0.0-1.0); HEMATOCRIT 31.9 % (42.0-52.0); HEMOGLOBIN 10.4 g/dl (13.5-17.5); LYMPH # 0.4 10^3/uL (1.5-5.0); MEAN CORPUSCULAR HEMOGLOBIN 34.8 pg (27.0-33.0); MEAN CORPUSCULAR HGB CONC 32.6 g/dl (32.0-36.5); MEAN CORPUSCULAR VOLUME 106.7 fl (80.0-96.0); MONO # 0.2 10^3/uL (0.0-0.8); MONO % 2.6 % (2.0-8.0); NEUTROPHILS # 7.7 10^3/uL (1.5-8.5); NEUTROPHILS % 91.8 % (36.0-66.0); PLATELET COUNT, AUTOMATED 134 10^3/uL (150-450); RED BLOOD COUNT 2.99 10^6/uL (4.30-6.10); WHITE BLOOD COUNT 8.4 10^3/uL (4.0-10.0)
[2022-05-19 15:50] LABS: ALBUMIN 2.9 G/DL (3.2-5.2); ALKALINE PHOSPHATASE 238 U/L (46-116); ALT/SGPT 95 U/L (7.0-40); AST/SGOT 111 U/L (<34); BILIRUBIN,TOTAL 8.3 MG/DL (0.3-1.2); BLOOD UREA NITROGEN 11 MG/DL (9-23); CALCIUM LEVEL 8.4 MG/DL (8.5-10.1); CARBON DIOXIDE LEVEL 29 MMOL/L (20-31); CHLORIDE LEVEL 93 MMOL/L (98-107); CREATININE FOR GFR 0.46 MG/DL (0.70-1.30); GLOMERULAR FILTRATION RATE > 60.0 (>60); GLUCOSE, FASTING 629 MG/DL (60-100); POTASSIUM SERUM 4.1 MMOL/L (3.5-5.1); SODIUM LEVEL 133 MMOL/L (136-145); TOTAL PROTEIN 6.6 G/DL (5.7-8.2)
== END ==
LOC: M PLALAB 12:32
PROVIDERS: ATTEND Physician Assistant
DX: K86.89 Other specified diseases of pancreas (principal)

== ENCOUNTER → 2022-06-01 | Outpatient (CLI) | payer OTHER ==
[~2022-06-01] MED LIST changes: +METF500T13 PO
[2022-06-01 11:26] LABS: ALBUMIN 3.2 G/DL (3.2-5.2); ALKALINE PHOSPHATASE 225 U/L (46-116); ALT/SGPT 94 U/L (7.0-40); AST/SGOT 66 U/L (<34); BILIRUBIN,TOTAL 4.1 MG/DL (0.3-1.2); BLOOD UREA NITROGEN 9 MG/DL (9-23); CALCIUM LEVEL 8.5 MG/DL (8.5-10.1); CARBON DIOXIDE LEVEL 34 MMOL/L (20-31); CHLORIDE LEVEL 94 MMOL/L (98-107); CREATININE FOR GFR 0.46 MG/DL (0.70-1.30); GLOMERULAR FILTRATION RATE > 60.0 (>60); GLUCOSE, FASTING 368 MG/DL (60-100); POTASSIUM SERUM 3.1 MMOL/L (3.5-5.1); SODIUM LEVEL 134 MMOL/L (136-145); TOTAL PROTEIN 6.7 G/DL (5.7-8.2)
[2022-06-01 11:38] LABS: CA19-9 TUMOR MARKER,CARBOHYDRA 25.7 U/ML (<35.0)
== END ==
LOC: M PLALAB 08:27
PROVIDERS: ATTEND Physician Assistant
DX: K86.89 Other specified diseases of pancreas (principal); E08.9 Diabetes mellitus due to underlying condition without complications

== ENCOUNTER → 2022-06-15 | Outpatient (CLI) | payer OTHER ==
[~2022-06-15] MED LIST changes: +GASTROGRAFIN SOLUTION 30ML As Ordered ONE; +ISOVUE-370 76% 100ML VIAL As Ordered ONE
== END ==
LOC: M RAD 08:42
PROVIDERS: ATTEND Physician Assistant
DX: K86.3 Pseudocyst of pancreas (principal)
CPT/HCPCS: 74178; Q9963; Q9967

== ENCOUNTER → 2022-07-07 | Outpatient (CLI) | payer OTHER ==
[~2022-07-07] MED LIST changes: -GASTROGRAFIN SOLUTION 30ML As Ordered ONE; -ISOVUE-370 76% 100ML VIAL As Ordered ONE
== END ==
LOC: M RAD 13:05
PROVIDERS: ATTEND Physician Assistant
DX: N50.89 Other specified disorders of the male genital organs (principal)

== ENCOUNTER → 2022-07-22 | Outpatient (CLI) | payer OTHER ==
[2022-07-22 18:04] LABS: APPEARANCE, URINE CLEAR (CLEAR); BACTERIA, URINE AUTO NEGATIVE (NEGATIVE); BILIRUBIN, URINE AUTO NEGATIVE (NEGATIVE); BLOOD, URINE BLOOD NEGATIVE (NEGATIVE); CALCIUM OXALATE CRYSTALS SMALL; COLOR, URINE YELLOW (YELLOW); GLUCOSE, URINE (UA) AUTO NEGATIVE (NEGATIVE); KETONE, URINE AUTO NEGATIVE (NEGATIVE); LEUKOCYTE ESTERASE, URINE AUTO NEGATIVE (NEGATIVE); MUCUS, URINE SMALL (NEGATIVE); NITRITE, URINE AUTO NEGATIVE (NEGATIVE); PROTEIN, URINE AUTO NEGATIVE (NEGATIVE); RBC, URINE AUTO 1 /HPF (0-3); SPECIFIC GRAVITY URINE AUTO 1.019 (1.002-1.035); SQUAMOUS EPITHELIAL CELL UR AU 0 /HPF (0-6); WBC, URINE AUTO 4 /HPF (0-3)
[2022-07-22 18:05] LABS: ALBUMIN 3.5 G/DL (3.2-5.2); ALKALINE PHOSPHATASE 154 U/L (46-116); ALT/SGPT 16 U/L (7.0-40); AST/SGOT 28 U/L (<34); BILIRUBIN,TOTAL 1.3 MG/DL (0.3-1.2); BLOOD UREA NITROGEN 7 MG/DL (9-23); CALCIUM LEVEL 10.1 MG/DL (8.5-10.1); CARBON DIOXIDE LEVEL 31 MMOL/L (20-31); CHLORIDE LEVEL 99 MMOL/L (98-107); CHOLESTEROL LEVEL 127 MG/DL (<200); CHOLESTEROL RISK RATIO 3.83 (<5); GLOMERULAR FILTRATION RATE > 60.0 (>60); GLUCOSE, FASTING 187 MG/DL (60-100); HDL CHOLESTEROL 33.1 MG/DL (>40); LDL CHOLESTEROL 75.7 MG/DL (<100); NON-HDL-C 93.9 MG/DL; POTASSIUM SERUM 3.6 MMOL/L (3.5-5.1); SODIUM LEVEL 137 MMOL/L (136-145); TOTAL PROTEIN 6.8 G/DL (5.7-8.2); TRIGLYCERIDES LEVEL 91 MG/DL (<150)
[2022-07-22 18:47] LABS: HEMOGLOBIN A1c 8.1 % (4.0-6.0)
== END ==
LOC: M PLALAB 14:34
PROVIDERS: ATTEND Physician Assistant
DX: R82.90 Unspecified abnormal findings in urine (principal); E08.9 Diabetes mellitus due to underlying condition without complications

== ENCOUNTER → 2022-09-24 | Outpatient (CLI) | payer OTHER ==
[2022-09-24 13:49] LABS: HEMATOCRIT 36.6 % (42.0-52.0); HEMOGLOBIN 11.8 g/dl (13.5-17.5); MEAN CORPUSCULAR HEMOGLOBIN 27.1 pg (27.0-33.0); MEAN CORPUSCULAR HGB CONC 32.2 g/dl (32.0-36.5); MEAN CORPUSCULAR VOLUME 83.9 fl (80.0-96.0); PLATELET COUNT, AUTOMATED 127 10^3/uL (150-450); RED BLOOD COUNT 4.36 10^6/uL (4.30-6.10); WHITE BLOOD COUNT 6.3 10^3/uL (4.0-10.0)
[2022-09-24 14:07] LABS: INR 1.33; PROTHROMBIN TIME 16.1 SECONDS (12.5-14.5)
[2022-09-24 14:14] LABS: ALBUMIN 4.1 G/DL (3.2-5.2); ALKALINE PHOSPHATASE 148 U/L (46-116); ALT/SGPT 19 U/L (7.0-40); AST/SGOT 22 U/L (<34); BILIRUBIN,TOTAL 1.3 MG/DL (0.3-1.2); BLOOD UREA NITROGEN 16 MG/DL (9-23); CALCIUM LEVEL 9.7 MG/DL (8.5-10.1); CARBON DIOXIDE LEVEL 30 MMOL/L (20-31); CHLORIDE LEVEL 100 MMOL/L (98-107); CREATININE FOR GFR 0.73 MG/DL (0.70-1.30); GLOMERULAR FILTRATION RATE > 60.0 (>60); GLUCOSE, FASTING 80 MG/DL (60-100); POTASSIUM SERUM 3.7 MMOL/L (3.5-5.1); SODIUM LEVEL 139 MMOL/L (136-145); TOTAL PROTEIN 7.6 G/DL (5.7-8.2)
== END ==
LOC: M PLALAB 11:48
PROVIDERS: ATTEND Internal Medicine Gastroenterology
DX: K74.60 Unspecified cirrhosis of liver (principal)

== ENCOUNTER 2022-10-09 18:01 | Emergency (ER) | payer OTHER ==
[~2022-10-09] VITALS: Ht 185.4 cm; Wt 81.8 kg
[~2022-10-09 18:01] MED LIST changes: -MIRT-62 PO; +MIRT-88 PO
[2022-10-09] MEDS ORDERED: LORazepam 1 MG TAB PO STA (18:14)
[2022-10-09 18:43] LABS: VENOUS BASE EXCESS -1.4 (-2.0-2.0); VENOUS HCO3 21.1 MMOL/L (23.0-27.0); VENOUS O2 SATURATION 98.5 % (60.0-80.0); VENOUS PARTIAL PRESSURE CO2 29.6 mmHg (38.0-50.0); VENOUS PARTIAL PRESSURE O2 150.6 mmHg (30.0-50.0); VENOUS PH 7.471 UNITS (7.330-7.430); VENOUS STANDARD HCO3 23.4 MMOL/L
[2022-10-09 18:50] LABS: BASO # 0.1 10^3/uL (0.0-0.2); EOS # 0.1 10^3/uL (0.0-0.5); EOS % 0.8 % (0.0-3.0); HEMATOCRIT 38.8 % (42.0-52.0); LYMPH % 39.6 % (24.0-44.0); MEAN CORPUSCULAR HEMOGLOBIN 26.9 pg (27.0-33.0); MEAN CORPUSCULAR HGB CONC 33.5 g/dl (32.0-36.5); MEAN CORPUSCULAR VOLUME 80.3 fl (80.0-96.0); MONO # 0.6 10^3/uL (0.0-0.8); MONO % 5.8 % (2.0-8.0); NEUTROPHILS # 5.2 10^3/uL (1.5-8.5); NEUTROPHILS % 52.2 % (36.0-66.0); PLATELET COUNT, AUTOMATED 282 10^3/uL (150-450); RED BLOOD COUNT 4.83 10^6/uL (4.30-6.10)
[2022-10-09] MEDS: FOLIC ACID 1MG TAB PO SCH (18:58)
[2022-10-09 19:00] LABS: HEMOGLOBIN A1c 6.3 % (4.0-6.0)
[2022-10-09] MEDS: THIAMINE 100 MG TAB PO SCH (19:00)
[2022-10-09] MEDS: MULTIVITAMINS/MINERALS THERAP 1 TAB PO SCH (19:08)
[2022-10-09 19:12] LABS: OSMOLALITY SERUM 391 MOSM/KG (275-295)
[2022-10-09 19:13] LABS: LIPASE 23 U/L (12-53)
[2022-10-09 19:15] LABS: ACETAMINOPHEN LEVEL < 2.0 UG/ML (10.0-20.0); ACETONE/KETONE 0.33 MMOL/L (0.02-0.27); ALBUMIN 4.3 G/DL (3.2-5.2); ALKALINE PHOSPHATASE 242 U/L (46-116); ALT/SGPT 61 U/L (7.0-40); AST/SGOT 119 U/L (<34); BILIRUBIN,DIRECT 0.7 MG/DL (<0.4); BILIRUBIN,TOTAL 1.4 MG/DL (0.3-1.2); BLOOD UREA NITROGEN 9 MG/DL (9-23); CALCIUM LEVEL 8.9 MG/DL (8.5-10.1); CARBON DIOXIDE LEVEL 22 MMOL/L (20-31); CHLORIDE LEVEL 102 MMOL/L (98-107); CREATININE FOR GFR 0.87 MG/DL (0.70-1.30); GLOMERULAR FILTRATION RATE > 60.0 (>60); GLUCOSE, FASTING 179 MG/DL (60-100); MAGNESIUM LEVEL 1.6 MG/DL (1.8-2.4); POTASSIUM SERUM 3.7 MMOL/L (3.5-5.1); SALICYLATE LEVEL < 3.0 MG/DL (<30); SODIUM LEVEL 142 MMOL/L (136-145)
[2022-10-09 19:16] LABS: CPK CREATINE PHOSPHOKINASE 161 U/L (46-171)
[2022-10-09 19:17] LABS: FREE T4 1.06 NG/DL (0.89-1.76); THYROID STIMULATING HORMONE 1.446 uIU/ML (0.55-4.78)
[2022-10-09 19:24] LABS: RSV AMPLIFICATION NEGATIVE (NEGATIVE)
[2022-10-09 19:26] LABS: ETHYL ALCOHOL (ETHANOL) 0.303 % (0.000-0.010)
[2022-10-09] MEDS ORDERED: NS 1,000 ML IV ONE ×2 (19:55→23:05)
[2022-10-09 22:15] LABS: VENOUS BASE EXCESS -1.8 (-2.0-2.0); VENOUS HCO3 21.7 MMOL/L (23.0-27.0); VENOUS O2 SATURATION 98.2 % (60.0-80.0); VENOUS PARTIAL PRESSURE O2 136.4 mmHg (30.0-50.0); VENOUS PH 7.436 UNITS (7.330-7.430); VENOUS TOTAL CO2 22.7 MMOL/L (24.0-28.0)
[2022-10-09 22:48] LABS: BLOOD UREA NITROGEN 8 MG/DL (9-23); CALCIUM LEVEL 8.2 MG/DL (8.5-10.1); CARBON DIOXIDE LEVEL 22 MMOL/L (20-31); CHLORIDE LEVEL 101 MMOL/L (98-107); CREATININE FOR GFR 0.61 MG/DL (0.70-1.30); GLOMERULAR FILTRATION RATE > 60.0 (>60); GLUCOSE, FASTING 133 MG/DL (60-100); POTASSIUM SERUM 4.2 MMOL/L (3.5-5.1); SODIUM LEVEL 141 MMOL/L (136-145)
[2022-10-09 22:50] LABS: ACETONE/KETONE 0.46 MMOL/L (0.02-0.27)
[2022-10-09] MEDS ORDERED: MAG SULF 1GM/100ML (MAG RUN) 1 GM in IV 1 EA IV ONE (23:05)
[2022-10-09] MEDS: LORazepam 2 MG TAB PO PRN (23:42)
[2022-10-10 00:03] LABS: APPEARANCE, URINE CLEAR (CLEAR); BACTERIA, URINE AUTO NEGATIVE (NEGATIVE); BILIRUBIN, URINE AUTO NEGATIVE (NEGATIVE); BLOOD, URINE BLOOD NEGATIVE (NEGATIVE); COLOR, URINE STRAW (YELLOW); GLUCOSE, URINE (UA) AUTO NEGATIVE (NEGATIVE); KETONE, URINE AUTO NEGATIVE (NEGATIVE); LEUKOCYTE ESTERASE, URINE AUTO NEGATIVE (NEGATIVE); NITRITE, URINE AUTO NEGATIVE (NEGATIVE); PROTEIN, URINE AUTO NEGATIVE (NEGATIVE); RBC, URINE AUTO 0 /HPF (0-3); SPECIFIC GRAVITY URINE AUTO 1.004 (1.002-1.035); SQUAMOUS EPITHELIAL CELL UR AU 0 /HPF (0-6); UROBILINOGEN, URINE AUTO 0.2 mg/dL (0.0-2.0); WBC, URINE AUTO 0 /HPF (0-3)
[2022-10-10] MEDS ORDERED: NS 1,000 ML IV ONE ×2 (01:00)
[2022-10-10] MEDS: LORazepam 2 MG TAB PO PRN ×5 (01:28→19:01)
[2022-10-10 04:08] LABS: BLOOD UREA NITROGEN < 5 MG/DL (9-23); CALCIUM LEVEL 7.5 MG/DL (8.5-10.1); CARBON DIOXIDE LEVEL 22 MMOL/L (20-31); CHLORIDE LEVEL 106 MMOL/L (98-107); CREATININE FOR GFR 0.52 MG/DL (0.70-1.30); GLOMERULAR FILTRATION RATE > 60.0 (>60); GLUCOSE, FASTING 92 MG/DL (60-100); POTASSIUM SERUM 3.5 MMOL/L (3.5-5.1); SODIUM LEVEL 142 MMOL/L (136-145)
[2022-10-10] MEDS ORDERED: MED REC CURRENTLY UNOBTAINABLE XX SCH (06:10)
[2022-10-10] MEDS: MULTIVITAMINS/MINERALS THERAP 1 TAB PO SCH (12:57)
[2022-10-10] MEDS: THIAMINE 100 MG TAB PO SCH ×2 (12:57→20:20)
[2022-10-10] MEDS: FOLIC ACID 1MG TAB PO SCH (12:58)
[2022-10-10] MEDS: NICOTINE 21MG/24HR 1 EA TRANSDERMAL TD PRN ×2 (12:58→20:23)
[2022-10-10] MEDS ORDERED: FOLI400T13 PO (15:27)
[2022-10-10] MEDS ORDERED: FURO20TA2 PO (15:27)
[2022-10-10] MEDS ORDERED: GING1CAP PO (15:27)
[2022-10-10] MEDS ORDERED: RA B1TAB2 PO (15:27)
[2022-10-10] MEDS ORDERED: B-1100TA2 PO (15:27)
[2022-10-10] MEDS ORDERED: OXYC-517 PO (15:27)
[2022-10-10] MEDS ORDERED: FOLI1TAB11 PO (15:27)
[2022-10-10] MEDS ORDERED: HOME MED LIST COMPLETE! XX SCH (15:40)
[2022-10-10] MEDS ORDERED: METF500T13 PO (16:03)
[2022-10-11] MEDS: MULTIVITAMINS/MINERALS THERAP 1 TAB PO SCH (08:58)
[2022-10-11] MEDS: LORazepam 2 MG TAB PO PRN (08:59)
[2022-10-11] MEDS: THIAMINE 100 MG TAB PO SCH (08:59)
[2022-10-11] MEDS: FOLIC ACID 1MG TAB PO SCH (08:59)
[2022-10-11 11:58] VITALS: BP 142/96; TEMP 99; O2SAT 96
== END 2022-10-11 12:02 | disposition home or self-care (01) ==
LOC: M ED 18:01
DX: F10.129 Alcohol abuse with intoxication, unspecified (principal); Y90.8 Blood alcohol level of 240 mg/100 ml or more; F43.0 Acute stress reaction; F32.A Depression, unspecified; E11.9 Type 2 diabetes mellitus without complications; K21.9 Gastro-esophageal reflux disease without esophagitis; Z79.84 Long term (current) use of oral hypoglycemic drugs; Z79.899 Other long term (current) drug therapy
CPT/HCPCS: 36415; 80048; 80076; 80143; 81001; 82010; 82077; 82550; 82803; 83036; 83605; 83690; 83735; 83930; 84439; 84443; 85025; 87507; 87631; 93005; 96361; 96365; 99285; J3475

== ENCOUNTER → 2022-10-13 | Outpatient (CLI) | payer OTHER ==
[~2022-10-13] MED LIST changes: +B-1100TA2 PO; +FOLI1TAB11 PO; +FOLI400T13 PO; +FURO20TA2 PO; +GASTROGRAFIN SOLUTION 30ML As Ordered ONE; +GING1CAP PO; +ISOVUE-370 76% 100ML VIAL As Ordered ONE; +OXYC-517 PO; +RA B1TAB2 PO
== END ==
LOC: M RAD 09:03
PROVIDERS: ATTEND Internal Medicine Gastroenterology
DX: K74.60 Unspecified cirrhosis of liver (principal); K86.89 Other specified diseases of pancreas
CPT/HCPCS: 74170; Q9963; Q9967

== ENCOUNTER → 2022-10-18 | Outpatient (CLI) | payer OTHER ==
[~2022-10-18] MED LIST changes: -GASTROGRAFIN SOLUTION 30ML As Ordered ONE; -ISOVUE-370 76% 100ML VIAL As Ordered ONE
[2022-10-18 16:56] LABS: HEMOGLOBIN A1c 6.4 % (4.0-6.0)
== END ==
LOC: M PLALAB 12:29
PROVIDERS: ATTEND Family Medicine
DX: E11.9 Type 2 diabetes mellitus without complications (principal)

== ENCOUNTER 2022-11-29 20:04 | Inpatient (IN) | payer OTHER ==
[~2022-11-29] VITALS: Ht 185.4 cm; Wt 82.3 kg
[2022-11-29] MEDS ORDERED: LANTINJ4 SC (20:17)
[2022-11-30] VITALS (19 sets, daily range): BP systolic 128–145; BP diastolic 70–85; TEMP 97.7–98.6; O2SAT 93–97
[2022-11-30] MEDS ORDERED: LORazepam 2 MG/ML 1ML VIAL IV STA (00:24)
[2022-11-30] MEDS ORDERED: MULTIVITAMIN -ADULT INJECTION 10 ML, THIAMINE INJection 100 MG, FOLIC ACID 1 MG in NS 1... IV ONE (00:25)
[2022-11-30] MEDS ORDERED: NS 1,000 ML IV ONE ×2 (00:25→05:05)
[2022-11-30] MEDS ORDERED: ONDANSETRON 4MG 2ML VIAL IV ONE (00:25)
[2022-11-30] MEDS ORDERED: IBUPROFEN 600MG TAB PO ONE (00:30)
[2022-11-30 01:27] LABS: CK-MB VALUE MASS < 1.0 NG/ML (<3.6); ETHYL ALCOHOL (ETHANOL) < 0.003 % (0.000-0.010); LIPASE 19 U/L (12-53)
[2022-11-30 01:29] LABS: ALBUMIN 4.3 G/DL (3.2-5.2); ALKALINE PHOSPHATASE 215 U/L (46-116); ALT/SGPT 96 U/L (7.0-40); AMYLASE 31 U/L (30-118); AST/SGOT 140 U/L (<34); BILIRUBIN,DIRECT 1.1 MG/DL (<0.4); BILIRUBIN,TOTAL 2.2 MG/DL (0.3-1.2); BLOOD UREA NITROGEN 7 MG/DL (9-23); CALCIUM LEVEL 9.6 MG/DL (8.5-10.1); CARBON DIOXIDE LEVEL 32 MMOL/L (20-31); CHLORIDE LEVEL 95 MMOL/L (98-107); CPK CREATINE PHOSPHOKINASE 136 U/L (46-171); CREATININE FOR GFR 0.47 MG/DL (0.70-1.30); GLOMERULAR FILTRATION RATE > 60.0 (>60); GLUCOSE, FASTING 119 MG/DL (60-100); MB/CK RELATIVE INDEX 0.73 (< OR =4); POTASSIUM SERUM 3.6 MMOL/L (3.5-5.1); SODIUM LEVEL 136 MMOL/L (136-145); TOTAL PROTEIN 7.8 G/DL (5.7-8.2)
[2022-11-30 01:35] LABS: RSV AMPLIFICATION NEGATIVE (NEGATIVE)
[2022-11-30] MEDS ORDERED: ISOVUE-370 76% 100ML VIAL As Ordered ONE (02:06)
[2022-11-30] MEDS ORDERED: ANEXSIA, NORCO 7.5MG/325MG TABLET(HYDROCODONE/APAP) PO ONE (05:05)
[2022-11-30] MEDS ORDERED: OXAZEPAM 15MG CAP PO ONE (05:05)
[2022-11-30] MEDS ORDERED: LORazepam 2 MG TAB PO PRN (07:45)
[2022-11-30 07:54] LABS: MAGNESIUM LEVEL 1.8 MG/DL (1.8-2.4)
[2022-11-30] MEDS ORDERED: MED REC IN PROGRESS XX SCH (08:15)
[2022-11-30] MEDS ORDERED: MAALOX 30 ML SUSP *UDC PO PRN (08:35)
[2022-11-30] MEDS ORDERED: ACETAMINOPHEN TAB 650MG DOSE (2X325MG) PO PRN (08:35)
[2022-11-30] MEDS ORDERED: MOM 30ML SUSPENSION UDC PO PRN (08:35)
[2022-11-30] MEDS ORDERED: HYDROMORPHONE HCL 0.5 MG/ 0.5 ML SYRINGE IV PRN ×2 (08:45)
[2022-11-30] MEDS ORDERED: NICOTINE 21MG/24HR 1 EA TRANSDERMAL TD PRN (08:45)
[2022-11-30] MEDS ORDERED: THIAMINE 100 MG TAB PO SCH (09:00)
[2022-11-30] MEDS ORDERED: MULTIVITAMINS/MINERALS THERAP 1 TAB PO SCH (09:00)
[2022-11-30] MEDS ORDERED: FOLIC ACID 1MG TAB PO SCH (09:00)
[2022-11-30] MEDS ORDERED: RA M200C4 PO (09:07)
[2022-11-30] MEDS ORDERED: CHOL125C6 PO (09:07)
[2022-11-30] MEDS ORDERED: MAGN250T7 PO (09:07)
[2022-11-30 09:08] LABS: INR 1.43
[2022-11-30 09:09] LABS: PARTIAL THROMBOPLASTIN TIME 30.4 SECONDS (24.8-34.2)
[2022-11-30] MEDS ORDERED: HOME MED LIST COMPLETE! XX SCH (09:10)
[2022-11-30] MEDS ORDERED: hydrOXYzine 50 MG TAB PO PRN (09:55)
[2022-11-30] MEDS ORDERED: clonazePAM 0.5 MG TAB PO PRN (09:55)
[2022-11-30] MEDS ORDERED: traZODone 100 MG TAB PO PRN (09:55)
[2022-11-30] MEDS ORDERED: GLUCAGON INJ 1MG VIAL SC PRN (10:40)
[2022-11-30] MEDS ORDERED: DEXTROSE 50% 50ML SYRINGE IV PRN (10:40)
[2022-11-30] MEDS ORDERED: GLUCOSE 4GM CHEW TABLET PO PRN (10:40)
[2022-11-30] MEDS ORDERED: ONDANSETRON 4MG TAB PO PRN (10:40)
[2022-11-30] MEDS: OMEPRAZOLE 20MG CAP PO SCH (11:45)
[2022-11-30] MEDS: LEVEMIR (INSULIN DETEMIR) 1 UNITS/0.01ML SC SCH ×2 (11:46→21:47)
[2022-11-30] MEDS ORDERED: NORCO, ANEXSIA 5/325MG TABLET (HYDROcodone/ACETAMINOPHEN) PO PRN (11:55)
[2022-11-30] MEDS ORDERED: ONDANSETRON 4MG 2ML VIAL IV PRN (11:55)
[2022-11-30] MEDS ORDERED: INSULIN LISPRO (NovoLOG) PER UNIT SC SCH ×2 (12:00→21:00)
[2022-11-30] MEDS: INSULIN LISPRO (NovoLOG) PER UNIT SC SCH ×2 (12:00→17:53)
[2022-11-30 12:22] LABS: HEPATITIS B CORE ANTIBODY IGM NEGATIVE (NEGATIVE); HEPATITIS C VIRUS ABY INDEX 0.09 INDEX (<0.8)
[2022-11-30] MEDS: LR 1,000 ML IV SCH ×2 (14:19→22:20)
[2022-11-30] MEDS: OXAZEPAM 15MG CAP PO SCH ×2 (14:50→21:48)
[2022-11-30 16:57] LABS: HEMATOCRIT 38.1 % (41.0-51.0); HEMOGLOBIN 12.4 g/dl (14.0-16.0); MEAN CORPUSCULAR HEMOGLOBIN 25.9 pg (27.0-34.0); MEAN CORPUSCULAR HGB CONC 32.5 g/dl (31.0-36.0); MEAN CORPUSCULAR VOLUME 79.7 fl (80.0-94.0); NEUTROPHILS % 69.3 % (37.0-80.0); PLATELET COUNT, AUTOMATED 218 10^3/uL (150-450); RED BLOOD COUNT 4.78 10^6/uL (4.50-6.30); WHITE BLOOD COUNT 7.3 10^3/uL (4.2-11.0)
[2022-11-30 16:58] LABS: BASO % 1.1 % (0.0-2.0); EOS # 0.3 10^3/uL (0.0-0.70); EOS % 3.7 % (0.0-7.0); LYMPH # 1.3 10^3/UL (0.6-3.40); LYMPH % 17.2 % (25.0-40.0); MONO # 0.6 10^3/uL (0.0-0.90); MONO % 8.3 % (3.0-8.0)
[2022-11-30] MEDS: HEPARIN SOD (PORCINE) 5000UNITS/ML 1ML VIAL/SYRINGE SC SCH ×2 (17:06→21:48)
[2022-11-30] MEDS: LORazepam 2 MG TAB PO PRN (17:29)
[2022-11-30] MEDS: THIAMINE 100 MG TAB PO SCH (21:48)
[2022-12-01] VITALS (21 sets, daily range): BP systolic 127–149; BP diastolic 69–86; TEMP 97.2–98.2; O2SAT 91–97
[2022-12-01] MEDS: LORazepam 2 MG TAB PO PRN (00:26)
[2022-12-01 04:35] LABS: BASO % 0.4 % (0.0-1.0); EOS # 0.1 10^3/uL (0.0-0.5); HEMOGLOBIN 10.9 g/dl (13.5-17.5); LYMPH # 2.1 10^3/uL (1.5-5.0); LYMPH % 41.1 % (24.0-44.0); MEAN CORPUSCULAR HEMOGLOBIN 26.5 pg (27.0-33.0); MEAN CORPUSCULAR VOLUME 80.1 fl (80.0-96.0); MONO # 0.3 10^3/uL (0.0-0.8); MONO % 6.3 % (2.0-8.0); NEUTROPHILS # 2.6 10^3/uL (1.5-8.5); PLATELET COUNT, AUTOMATED 102 10^3/uL (150-450); RED BLOOD COUNT 4.12 10^6/uL (4.30-6.10); WHITE BLOOD COUNT 5.1 10^3/uL (4.0-10.0)
[2022-12-01 05:17] LABS: ALBUMIN 3.6 G/DL (3.2-5.2); ALKALINE PHOSPHATASE 175 U/L (46-116); ALT/SGPT 65 U/L (7.0-40); AST/SGOT 80 U/L (<34); BILIRUBIN,TOTAL 2.1 MG/DL (0.3-1.2); BLOOD UREA NITROGEN < 5 MG/DL (9-23); CALCIUM LEVEL 8.8 MG/DL (8.5-10.1); CARBON DIOXIDE LEVEL 30 MMOL/L (20-31); CHLORIDE LEVEL 101 MMOL/L (98-107); CREATININE FOR GFR 0.49 MG/DL (0.70-1.30); GLOMERULAR FILTRATION RATE > 60.0 (>60); GLUCOSE, FASTING 91 MG/DL (60-100); MAGNESIUM LEVEL 1.5 MG/DL (1.8-2.4); POTASSIUM SERUM 3.3 MMOL/L (3.5-5.1); SODIUM LEVEL 139 MMOL/L (136-145); TOTAL PROTEIN 6.5 G/DL (5.7-8.2)
[2022-12-01] MEDS ORDERED: POTASSIUM CHLORIDE 10MEQ SR TABLET PO ONE ×2 (05:45→07:00)
[2022-12-01] MEDS: INSULIN LISPRO (NovoLOG) PER UNIT SC SCH ×4 (05:49→12:51)
[2022-12-01] MEDS ORDERED: D5W/LR 1,000 ML IV SCH (05:55)
[2022-12-01] MEDS: OXAZEPAM 15MG CAP PO SCH (05:58)
[2022-12-01] MEDS: MAG SULF 1GM/100ML (MAG RUN) 1 GM in IV 1 EA IV SCH ×3 (06:01→08:45)
[2022-12-01] MEDS ORDERED: MAG SULF 1GM/100ML (MAG RUN) 1 GM in IV 1 EA IV ONE (07:00)
[2022-12-01] MEDS: OMEPRAZOLE 20MG CAP PO SCH (08:26)
[2022-12-01] MEDS: THIAMINE 100 MG TAB PO SCH (08:27)
[2022-12-01] MEDS: HEPARIN SOD (PORCINE) 5000UNITS/ML 1ML VIAL/SYRINGE SC SCH (08:28)
[2022-12-01] MEDS: chlordiazePOXIDE 25 MG CAP PO SCH ×2 (08:45→11:05)
[2022-12-01] MEDS: LEVEMIR (INSULIN DETEMIR) 1 UNITS/0.01ML SC SCH (08:45)
[2022-12-01] MEDS ORDERED: clonazePAM 0.5 MG TAB PO SCH (09:00)
[2022-12-01] MEDS ORDERED: MULTIVITAMINS/MINERALS THERAP 1 TAB PO SCH (09:00)
[2022-12-01] MEDS ORDERED: FOLIC ACID 1MG TAB PO SCH (09:00)
[2022-12-01] MEDS ORDERED: INFLUENZA QUADRIVALENT PF VACCINE 0.5ML SYRINGE IM.IMMUN ONE (09:00)
[2022-12-01] MEDS ORDERED: VITMTA PO (13:10)
[2022-12-01] MEDS ORDERED: CHLO25CA PO (13:10)
[2022-12-02] MEDS ORDERED: chlordiazePOXIDE 25 MG CAP PO SCH (10:00)
== END 2022-12-01 15:35 | disposition home or self-care (01) | DRG 280 ==
LOC: M ED 20:04 → M ED INP 11-30 08:13 → ENRESERV 11-30 09:05 → M PCU 11-30 10:19
PROVIDERS: ADMIT Internal Medicine; ATTEND Internal Medicine
DX: K70.10 Alcoholic hepatitis without ascites (principal); K85.90 Acute pancreatitis without necrosis or infection, unspecified; E11.40 Type 2 diabetes mellitus with diabetic neuropathy, unspecified; K74.60 Unspecified cirrhosis of liver; K86.1 Other chronic pancreatitis; E11.9 Type 2 diabetes mellitus without complications; F32.A Depression, unspecified; F41.9 Anxiety disorder, unspecified; G47.33 Obstructive sleep apnea (adult) (pediatric); F17.200 Nicotine dependence, unspecified, uncomplicated; I10 Essential (primary) hypertension; G47.00 Insomnia, unspecified; F10.239 Alcohol dependence with withdrawal, unspecified; K21.9 Gastro-esophageal reflux disease without esophagitis; M10.9 Gout, unspecified; Z79.899 Other long term (current) drug therapy; Z79.4 Long term (current) use of insulin

== ENCOUNTER → 2023-01-07 | Outpatient (REF) | payer OTHER ==
[~2023-01-07] MED LIST changes: +CHLO25CA PO; +CHOL125C6 PO; +LANTINJ4 SC; +MAGN250T7 PO; +RA M200C4 PO; +VITMTA PO
[2023-01-07 16:32] LABS: HEMATOCRIT 37.6 % (42.0-52.0); HEMOGLOBIN 11.9 g/dl (13.5-17.5); MEAN CORPUSCULAR HGB CONC 31.6 g/dl (32.0-36.5); MEAN CORPUSCULAR VOLUME 82.1 fl (80.0-96.0); PLATELET COUNT, AUTOMATED 250 10^3/uL (150-450); RED BLOOD COUNT 4.58 10^6/uL (4.30-6.10); WHITE BLOOD COUNT 8.4 10^3/uL (4.0-10.0)
[2023-01-07 16:46] LABS: INR 1.27; PROTHROMBIN TIME 15.5 SECONDS (12.5-14.5)
[2023-01-07 16:49] LABS: ALKALINE PHOSPHATASE 144 U/L (46-116); ALT/SGPT 55 U/L (7.0-40); AST/SGOT 51 U/L (<34); BILIRUBIN,TOTAL 0.9 MG/DL (0.3-1.2); BLOOD UREA NITROGEN 15 MG/DL (9-23); CALCIUM LEVEL 9.2 MG/DL (8.5-10.1); CARBON DIOXIDE LEVEL 28 MMOL/L (20-31); CHLORIDE LEVEL 99 MMOL/L (98-107); CREATININE FOR GFR 0.59 MG/DL (0.70-1.30); GLOMERULAR FILTRATION RATE > 60.0 (>60); GLUCOSE, FASTING 186 MG/DL (60-100); POTASSIUM SERUM 3.8 MMOL/L (3.5-5.1); SODIUM LEVEL 136 MMOL/L (136-145); TOTAL PROTEIN 7.2 G/DL (5.7-8.2)
[2023-01-07 17:07] LABS: HEMOGLOBIN A1c 6.1 % (4.0-6.0)
== END ==
LOC: M LABDRAWP 15:27
PROVIDERS: ATTEND Family Medicine
DX: K74.60 Unspecified cirrhosis of liver (principal); E08.65 Diabetes mellitus due to underlying condition with hyperglycemia

== ENCOUNTER 2023-01-27 22:58 | Emergency (ER) | payer OTHER ==
[~2023-01-27] VITALS: Ht 182.9 cm; Wt 78.0 kg
[2023-01-27] MEDS ORDERED: NS 1,000 ML IV ONE (23:10)
[2023-01-27 23:41] LABS: HEMATOCRIT 42.6 % (42.0-52.0); HEMOGLOBIN 13.8 g/dl (13.5-17.5); MEAN CORPUSCULAR HEMOGLOBIN 25.4 pg (27.0-33.0); MEAN CORPUSCULAR HGB CONC 32.4 g/dl (32.0-36.5); MEAN CORPUSCULAR VOLUME 78.5 fl (80.0-96.0); PLATELET COUNT, AUTOMATED 262 10^3/uL (150-450); RED BLOOD COUNT 5.43 10^6/uL (4.30-6.10)
[2023-01-27 23:54] LABS: LIPASE 19 U/L (12-53)
[2023-01-27 23:56] LABS: ALBUMIN 4.8 G/DL (3.2-5.2); ALKALINE PHOSPHATASE 247 U/L (46-116); ALT/SGPT 77 U/L (7.0-40); AST/SGOT 124 U/L (<34); BILIRUBIN,DIRECT 0.7 MG/DL (<0.4); BILIRUBIN,TOTAL 1.7 MG/DL (0.3-1.2); BLOOD UREA NITROGEN 12 MG/DL (9-23); CALCIUM LEVEL 8.8 MG/DL (8.5-10.1); CARBON DIOXIDE LEVEL 14 MMOL/L (20-31); CHLORIDE LEVEL 99 MMOL/L (98-107); CREATININE FOR GFR 0.63 MG/DL (0.70-1.30); GLOMERULAR FILTRATION RATE > 60.0 (>60); GLUCOSE, FASTING 116 MG/DL (60-100); POTASSIUM SERUM 3.6 MMOL/L (3.5-5.1); SALICYLATE LEVEL < 3.0 MG/DL (<30); SODIUM LEVEL 140 MMOL/L (136-145); TOTAL PROTEIN 8.3 G/DL (5.7-8.2)
[2023-01-28 00:03] LABS: RSV AMPLIFICATION NEGATIVE (NEGATIVE)
[2023-01-28 00:05] LABS: AMPHETAMINES LEVEL URINE NEGATIVE (NEGATIVE); BARBITURATES URINE NEGATIVE (NEGATIVE); BENZODIAZEPINES URINE NEGATIVE (NEGATIVE); COCAINE METABOLITE URINE NEGATIVE (NEGATIVE)
[2023-01-28 00:06] LABS: CANNABINOIDS URINE NEGATIVE (NEGATIVE); INR 1.3; METHADONE URINE NEGATIVE (NEGATIVE); OPIATES URINE NEGATIVE (NEGATIVE); PHENCYCLIDINE URINE NEGATIVE (NEGATIVE); PROTHROMBIN TIME 15.8 SECONDS (12.5-14.5)
[2023-01-28 00:07] LABS: PARTIAL THROMBOPLASTIN TIME 31.5 SECONDS (24.8-34.2)
[2023-01-28 00:23] LABS: CPK CREATINE PHOSPHOKINASE 112 U/L (46-171); ETHYL ALCOHOL (ETHANOL) 0.424 % (0.000-0.010)
[2023-01-28 00:28] LABS: ATYPICAL LYMPH 9 % (0-5); BASOPHILS 1 % (0-1); LYMPHOCYTES 45 % (16-44); MONOCYTES 2 % (0-5); NEUTROPHILS 42 % (28-66); PLATELET ESTIMATE NORMAL (NORMAL)
[2023-01-28 00:29] LABS: ANISOCYTOSIS 1+; MICROCYTOSIS 1+
[2023-01-28 00:57] LABS: VENOUS BASE EXCESS -7.4 (-2.0-2.0); VENOUS HCO3 17.6 MMOL/L (23.0-27.0); VENOUS O2 SATURATION 98.7 % (60.0-80.0); VENOUS PARTIAL PRESSURE CO2 34.3 mmHg (38.0-50.0); VENOUS PARTIAL PRESSURE O2 155.3 mmHg (30.0-50.0); VENOUS PH 7.329 UNITS (7.330-7.430); VENOUS STANDARD HCO3 18.6 MMOL/L; VENOUS TOTAL CO2 18.7 MMOL/L (24.0-28.0)
[2023-01-28] MEDS ORDERED: NICOTINE 21MG/24HR 1 EA TRANSDERMAL TD ONE (01:50)
[2023-01-28] MEDS: LORazepam 2 MG TAB PO PRN ×3 (04:05→12:53)
[2023-01-28] MEDS ORDERED: IBUPROFEN 800 MG TAB PO ONE (04:50)
[2023-01-28] MEDS ORDERED: THIAMINE 100 MG TAB PO SCH (09:00)
[2023-01-28] MEDS ORDERED: FOLIC ACID 1MG TAB PO SCH (09:00)
[2023-01-28] MEDS ORDERED: MULTIVITAMINS/MINERALS THERAP 1 TAB PO SCH (09:00)
[2023-01-28 19:14] VITALS: BP 138/81; TEMP 98.3; O2SAT 98
== END 2023-01-28 20:20 | disposition home or self-care (01) ==
LOC: M ED 22:58 → EDBD 22:58 → M ED 01-28 07:06
DX: F10.14 Alcohol abuse with alcohol-induced mood disorder (principal); E11.9 Type 2 diabetes mellitus without complications; F32.A Depression, unspecified; F41.1 Generalized anxiety disorder; K74.60 Unspecified cirrhosis of liver

== ENCOUNTER 2023-02-27 14:52 | Observation (INO) | payer OTHER ==
[~2023-02-27] VITALS: Ht 185.4 cm; Wt 77.1 kg
[2023-02-27] MEDS: THIAMINE 100 MG TAB PO SCH ×2 (09:00→21:01)
[~2023-02-27 14:52] MED LIST changes: -CHLO25CA PO; +CHLO25CA10 PO; +FOLIC ACID 1MG TAB PO SCH; +MULTIVITAMINS/MINERALS THERAP 1 TAB PO SCH
[2023-02-27] MEDS ORDERED: ONDANSETRON 4MG 2ML VIAL IV ONE (15:15)
[2023-02-27] MEDS ORDERED: NS 1,000 ML IV ONE (15:15)
[2023-02-27] MEDS ORDERED: MORPHINE 2 MG/ML 1ML VIAL IV ONE (15:15)
[2023-02-27] MEDS ORDERED: SCOPOLAMINE 1MG TRANSDERMAL PATCH TOP ONE (15:20)
[2023-02-27] MEDS: LORazepam 2 MG TAB PO PRN ×6 (15:25→21:01)
[2023-02-27 15:38] LABS: BASO % 0.9 % (0.0-1.0); HEMATOCRIT 34.1 % (42.0-52.0); HEMOGLOBIN 11.7 g/dl (13.5-17.5); LYMPH # 0.5 10^3/uL (1.5-5.0); LYMPH % 14.3 % (24.0-44.0); MEAN CORPUSCULAR HEMOGLOBIN 26.3 pg (27.0-33.0); MEAN CORPUSCULAR HGB CONC 34.3 g/dl (32.0-36.5); MEAN CORPUSCULAR VOLUME 76.6 fl (80.0-96.0); MONO # 0.2 10^3/uL (0.0-0.8); MONO % 4.9 % (2.0-8.0); NEUTROPHILS # 2.8 10^3/uL (1.5-8.5); NEUTROPHILS % 79.6 % (36.0-66.0); RED BLOOD COUNT 4.45 10^6/uL (4.30-6.10); WHITE BLOOD COUNT 3.5 10^3/uL (4.0-10.0)
[2023-02-27 16:01] LABS: RSV AMPLIFICATION NEGATIVE (NEGATIVE)
[2023-02-27 16:02] LABS: ETHYL ALCOHOL (ETHANOL) < 0.003 % (0.000-0.010)
[2023-02-27 16:03] LABS: ALBUMIN 4.4 G/DL (3.2-5.2); ALKALINE PHOSPHATASE 325 U/L (46-116); ALT/SGPT 83 U/L (7.0-40); AST/SGOT 135 U/L (<34); BILIRUBIN,DIRECT 1.3 MG/DL (<0.4); BILIRUBIN,TOTAL 2.8 MG/DL (0.3-1.2); BLOOD UREA NITROGEN 8 MG/DL (9-23); CALCIUM LEVEL 9.3 MG/DL (8.5-10.1); CARBON DIOXIDE LEVEL 26 MMOL/L (20-31); CHLORIDE LEVEL 98 MMOL/L (98-107); CPK CREATINE PHOSPHOKINASE 530 U/L (46-171); CREATININE FOR GFR 0.53 MG/DL (0.70-1.30); GLOMERULAR FILTRATION RATE > 60.0 (>60); GLUCOSE, FASTING 165 MG/DL (60-100); POTASSIUM SERUM 3.6 MMOL/L (3.5-5.1); SALICYLATE LEVEL < 3.0 MG/DL (<30); SODIUM LEVEL 135 MMOL/L (136-145); TOTAL PROTEIN 7.7 G/DL (5.7-8.2)
[2023-02-27 16:06] LABS: THYROID STIMULATING HORMONE 1.426 uIU/ML (0.55-4.78)
[2023-02-27 16:12] LABS: PLATELET COUNT, AUTOMATED 80 10^3/uL (150-450)
[2023-02-27] MEDS ORDERED: MORPHINE 4 MG/ML 1ML VIAL IV ONE (17:35)
[2023-02-27] MEDS ORDERED: NS 1,000 ML IV SCH (18:25)
[2023-02-27 19:15] LABS: LIPASE 23 U/L (12-53)
[2023-02-27] MEDS ORDERED: FISH1CAP26 PO (20:08)
[2023-02-27] MEDS ORDERED: [UNRECOGNIZED DRUG - CODE] PO (20:08)
[2023-02-27] MEDS ORDERED: tumeric PO (20:08)
[2023-02-27] MEDS ORDERED: LEXA1TAB PO (20:08)
[2023-02-27] MEDS ORDERED: med rec comment (20:09)
[2023-02-27] MEDS ORDERED: HOME MED LIST COMPLETE! XX SCH (20:10)
[2023-02-27] MEDS ORDERED: HYDROMORPHONE HCL 0.5 MG/ 0.5 ML SYRINGE IV PRN (22:20)
[2023-02-27] MEDS ORDERED: THIAMINE 200MG 2ML VIAL IM ONE (22:20)
[2023-02-27] MEDS ORDERED: METOCLOPRAMIDE INJ 10MG/2ML VIAL IV PRN (22:20)
[2023-02-27] MEDS ORDERED: ONDANSETRON 4MG 2ML VIAL IV PRN (22:20)
[2023-02-27] MEDS ORDERED: DEXTROSE 50% 50ML SYRINGE IV PRN (22:40)
[2023-02-27] MEDS ORDERED: GLUCAGON INJ 1MG VIAL SC PRN (22:40)
[2023-02-27] MEDS ORDERED: GLUCOSE 4GM CHEW TABLET PO PRN (22:40)
[2023-02-27] MEDS: NS 1,000 ML IV SCH (22:50)
[2023-02-28] VITALS (8 sets, daily range): BP systolic 131–167; BP diastolic 81–92; TEMP 98–98.6; O2SAT 96–99
[2023-02-28 00:20] LABS: APPEARANCE, URINE CLEAR (CLEAR); BACTERIA, URINE AUTO NEGATIVE (NEGATIVE); BILIRUBIN, URINE AUTO 1+ (NEGATIVE); BLOOD, URINE BLOOD NEGATIVE (NEGATIVE); COLOR, URINE AMBER (YELLOW); GLUCOSE, URINE (UA) AUTO NEGATIVE (NEGATIVE); KETONE, URINE AUTO 1+ mg/dL (NEGATIVE); LEUKOCYTE ESTERASE, URINE AUTO NEGATIVE (NEGATIVE); MUCUS, URINE SMALL (NEGATIVE); NITRITE, URINE AUTO NEGATIVE (NEGATIVE); PROTEIN, URINE AUTO 2+ mg/dL (NEGATIVE); RBC, URINE AUTO 4 /HPF (0-3); SQUAMOUS EPITHELIAL CELL UR AU 0 /HPF (0-6); WBC, URINE AUTO 1 /HPF (0-3)
[2023-02-28 00:43] LABS: AMPHETAMINES LEVEL URINE NEGATIVE (NEGATIVE); BARBITURATES URINE NEGATIVE (NEGATIVE); CANNABINOIDS URINE NEGATIVE (NEGATIVE); COCAINE METABOLITE URINE NEGATIVE (NEGATIVE); METHADONE URINE NEGATIVE (NEGATIVE); PHENCYCLIDINE URINE NEGATIVE (NEGATIVE)
[2023-02-28 00:54] LABS: BENZODIAZEPINES URINE POSITIVE (NEGATIVE); OPIATES URINE POSITIVE (NEGATIVE)
[2023-02-28] MEDS: NS 1,000 ML IV SCH (03:02)
[2023-02-28] MEDS: LORazepam 2 MG TAB PO PRN ×3 (04:05→16:25)
[2023-02-28] MEDS ORDERED: ACETAMINOPHEN TAB 650MG DOSE (2X325MG) PO ONE (04:15)
[2023-02-28 05:18] LABS: INR 1.41; PROTHROMBIN TIME 16.8 SECONDS (12.5-14.5)
[2023-02-28 05:52] LABS: ALBUMIN 3.6 G/DL (3.2-5.2); ALKALINE PHOSPHATASE 270 U/L (46-116); ALT/SGPT 64 U/L (7.0-40); AST/SGOT 99 U/L (<34); BILIRUBIN,TOTAL 3.1 MG/DL (0.3-1.2); BLOOD UREA NITROGEN 8 MG/DL (9-23); CALCIUM LEVEL 8.5 MG/DL (8.5-10.1); CARBON DIOXIDE LEVEL 28 MMOL/L (20-31); CHLORIDE LEVEL 102 MMOL/L (98-107); CREATININE FOR GFR 0.57 MG/DL (0.70-1.30); GLOMERULAR FILTRATION RATE > 60.0 (>60); GLUCOSE, FASTING 102 MG/DL (60-100); MAGNESIUM LEVEL 1.3 MG/DL (1.8-2.4); PHOSPHORUS LEVEL 2.5 MG/DL (2.5-4.9); POTASSIUM SERUM 3.3 MMOL/L (3.5-5.1); SODIUM LEVEL 137 MMOL/L (136-145); TOTAL PROTEIN 6.9 G/DL (5.7-8.2)
[2023-02-28 06:33] LABS: HEMOGLOBIN A1c 6.2 % (4.0-6.0)
[2023-02-28] MEDS: KCL 10MEQ/100ML SWI (KRUN) 10 MEQ in IV 1 EA IV SCH ×2 (08:50→08:52)
[2023-02-28] MEDS: INSULIN LISPRO (NovoLOG) PER UNIT SC SCH ×4 (08:52→17:30)
[2023-02-28] MEDS ORDERED: LEVEMIR (INSULIN DETEMIR) 1 UNITS/0.01ML SC SCH (09:00)
[2023-02-28] MEDS: NICOTINE POLACRILEX 2 MG GUM PO PRN ×4 (11:26→17:28)
[2023-02-28] MEDS: MAG SULF 1GM/100ML (MAG RUN) 1 GM in IV 1 EA IV SCH ×2 (12:00→12:36)
[2023-02-28] MEDS ORDERED: ACETAMINOPHEN TAB 650MG DOSE (2X325MG) PO PRN (14:05)
[2023-02-28] MEDS ORDERED: OLANZapine 5 MG TAB PO ONE (16:00)
[2023-02-28] MEDS ORDERED: OLANZapine 2.5MG TABLET PO ONE (17:00)
[2023-02-28] MEDS ORDERED: IBUPROFEN 400MG TAB PO ONE (17:00)
[2023-02-28] MEDS ORDERED: POTASSIUM CHLORIDE 10MEQ SR TABLET PO ONE (17:55)
[2023-02-28] MEDS ORDERED: MAGNESIUM OXIDE 400MG TAB (MAG-OX) PO ONE (18:00)
[2023-02-28] MEDS ORDERED: INSULIN LISPRO (NovoLOG) PER UNIT SC SCH (21:00)
== END 2023-02-28 18:11 | disposition left against medical advice (07) ==
LOC: EDBD 14:52 → M ED 14:52 → M ED INP 22:18 → M ICU 02-28 00:10
PROVIDERS: ADMIT Internal Medicine; ATTEND Internal Medicine
DX: F10.230 Alcohol dependence with withdrawal, uncomplicated (principal); K70.10 Alcoholic hepatitis without ascites; R74.8 Abnormal levels of other serum enzymes; D69.6 Thrombocytopenia, unspecified; E83.42 Hypomagnesemia; E87.6 Hypokalemia; E11.40 Type 2 diabetes mellitus with diabetic neuropathy, unspecified; F39 Unspecified mood [affective] disorder; R10.11 Right upper quadrant pain; R51.9 Headache, unspecified; Z87.19 Personal history of other diseases of the digestive system; Z96.89 Presence of other specified functional implants; F17.290 Nicotine dependence, other tobacco product, uncomplicated; Z20.822 Contact with and (suspected) exposure to COVID-19; Z79.899 Other long term (current) drug therapy; Z79.4 Long term (current) use of insulin; Z79.84 Long term (current) use of oral hypoglycemic drugs
CPT/HCPCS: 36415; 70450; 76705; 80048; 80053; 80076; 80143; 80307; 81001; 82077; 82550; 83036; 83690; 83735; 84100; 84443; 85025; 85049; 85055; 85610; 87631; 93005; 93041; 94760; 96361; 96365; 96366; 96367; 96375; 96376; 99285; J1170; J1815; J3475

== ENCOUNTER → 2023-03-18 | Outpatient (CLI) | payer OTHER ==
[~2023-03-18] MED LIST changes: +FISH1CAP26 PO; -FOLIC ACID 1MG TAB PO SCH; +LEXA1TAB PO; -MULTIVITAMINS/MINERALS THERAP 1 TAB PO SCH; +[UNRECOGNIZED DRUG - CODE] PO; +med rec comment; +tumeric PO
[2023-03-18 12:59] LABS: HEMOGLOBIN 12.8 g/dl (13.5-17.5); MEAN CORPUSCULAR HEMOGLOBIN 26.9 pg (27.0-33.0); MEAN CORPUSCULAR HGB CONC 32.8 g/dl (32.0-36.5); MEAN CORPUSCULAR VOLUME 81.9 fl (80.0-96.0); PLATELET COUNT, AUTOMATED 173 10^3/uL (150-450); RED BLOOD COUNT 4.76 10^6/uL (4.30-6.10)
[2023-03-18 13:11] LABS: INR 1.21; PROTHROMBIN TIME 14.9 SECONDS (12.5-14.5)
[2023-03-18 13:13] LABS: HEMOGLOBIN A1c 6.6 % (4.0-6.0)
[2023-03-18 13:30] LABS: ALBUMIN 4.3 G/DL (3.2-5.2); ALKALINE PHOSPHATASE 182 U/L (46-116); ALT/SGPT 111 U/L (7.0-40); AST/SGOT 60 U/L (<34); BILIRUBIN,TOTAL 0.9 MG/DL (0.3-1.2); BLOOD UREA NITROGEN 17 MG/DL (9-23); CALCIUM LEVEL 9.8 MG/DL (8.5-10.1); CARBON DIOXIDE LEVEL 30 MMOL/L (20-31); CHLORIDE LEVEL 98 MMOL/L (98-107); CREATININE FOR GFR 0.63 MG/DL (0.70-1.30); GLOMERULAR FILTRATION RATE > 60.0 (>60); GLUCOSE, FASTING 162 MG/DL (60-100); POTASSIUM SERUM 3.9 MMOL/L (3.5-5.1); SODIUM LEVEL 135 MMOL/L (136-145); TOTAL PROTEIN 7.7 G/DL (5.7-8.2)
== END ==
LOC: M PLALAB 12:13
PROVIDERS: ATTEND Family Medicine
DX: K70.9 Alcoholic liver disease, unspecified (principal); E08.65 Diabetes mellitus due to underlying condition with hyperglycemia

== ENCOUNTER → 2023-03-19 | Outpatient (REF) | payer OTHER | LOC: M SFHCPLAZ 14:45 | PROVIDERS: ATTEND Family Medicine | DX: K70.9 Alcoholic liver disease, unspecified (principal); E08.65 Diabetes mellitus due to underlying condition with hyperglycemia; E08.9 Diabetes mellitus due to underlying condition without complications ==

== ENCOUNTER → 2023-03-24 | Outpatient (REF) | payer OTHER | LOC: M LAB REF 15:46 | PROVIDERS: ATTEND Internal Medicine Gastroenterology | DX: K74.60 Unspecified cirrhosis of liver (principal); K86.89 Other specified diseases of pancreas; K86.3 Pseudocyst of pancreas; K65.4 Sclerosing mesenteritis ==

== ENCOUNTER → 2023-07-14 | Outpatient (CLI) | payer OTHER ==
[~2023-07-14] MED LIST changes: -PSEU30TA86 PO; +PSEU30TA87 PO
[2023-07-14 18:48] LABS: BASO # 0.1 10^3/uL (0.0-0.2); BASO % 0.8 % (0.0-1.0); EOS # 0.2 10^3/uL (0.0-0.5); EOS % 2.9 % (0.0-3.0); HEMATOCRIT 39.2 % (42.0-52.0); LYMPH # 2.2 10^3/uL (1.5-5.0); LYMPH % 35.2 % (24.0-44.0); MEAN CORPUSCULAR HEMOGLOBIN 27.1 pg (27.0-33.0); MEAN CORPUSCULAR HGB CONC 33.2 g/dl (32.0-36.5); MEAN CORPUSCULAR VOLUME 81.8 fl (80.0-96.0); MONO # 0.5 10^3/uL (0.0-0.8); MONO % 7.5 % (2.0-8.0); NEUTROPHILS # 3.4 10^3/uL (1.5-8.5); NEUTROPHILS % 53.6 % (36.0-66.0); PLATELET COUNT, AUTOMATED 182 10^3/uL (150-450); RED BLOOD COUNT 4.79 10^6/uL (4.30-6.10); WHITE BLOOD COUNT 6.3 10^3/uL (4.0-10.0)
[2023-07-14 19:29] LABS: ALBUMIN 4.3 G/DL (3.2-5.2); ALKALINE PHOSPHATASE 176 U/L (46-116); ALT/SGPT 53 U/L (7.0-40); AST/SGOT 34 U/L (<34); BILIRUBIN,TOTAL 0.9 MG/DL (0.3-1.2); BLOOD UREA NITROGEN 19 MG/DL (9-23); CALCIUM LEVEL 9.7 MG/DL (8.5-10.1); CARBON DIOXIDE LEVEL 31 MMOL/L (20-31); CHLORIDE LEVEL 98 MMOL/L (98-107); CREATININE FOR GFR 0.71 MG/DL (0.70-1.30); GLOMERULAR FILTRATION RATE > 60.0 (>60); GLUCOSE, FASTING 288 MG/DL (60-100); POTASSIUM SERUM 4.4 MMOL/L (3.5-5.1); SODIUM LEVEL 134 MMOL/L (136-145); TOTAL PROTEIN 7.6 G/DL (5.7-8.2)
== END ==
LOC: M PLALAB 15:27
PROVIDERS: ATTEND Family Medicine
DX: K70.9 Alcoholic liver disease, unspecified (principal); E08.65 Diabetes mellitus due to underlying condition with hyperglycemia; E08.9 Diabetes mellitus due to underlying condition without complications

== ENCOUNTER → 2023-10-14 | Outpatient (CLI) | payer OTHER ==
[2023-10-14 14:47] LABS: ALBUMIN 4.3 G/DL (3.2-5.2); ALKALINE PHOSPHATASE 197 U/L (46-116); ALT/SGPT 53 U/L (7.0-40); AST/SGOT 31 U/L (<34); BILIRUBIN,TOTAL 0.5 MG/DL (0.3-1.2); BLOOD UREA NITROGEN 16 MG/DL (9-23); CALCIUM LEVEL 10.1 MG/DL (8.5-10.1); CARBON DIOXIDE LEVEL 30 MMOL/L (20-31); CHLORIDE LEVEL 95 MMOL/L (98-107); CREATININE FOR GFR 0.67 MG/DL (0.70-1.30); GLOMERULAR FILTRATION RATE > 60.0 (>60); GLUCOSE, FASTING 650 MG/DL (60-100); POTASSIUM SERUM 4.5 MMOL/L (3.5-5.1); SODIUM LEVEL 130 MMOL/L (136-145); TOTAL PROTEIN 7.7 G/DL (5.7-8.2)
[2023-10-14 15:04] LABS: HEMOGLOBIN A1c 10.9 % (4.0-6.0)
== END ==
LOC: M PLALAB 09:02
PROVIDERS: ATTEND Family Medicine
DX: K70.9 Alcoholic liver disease, unspecified (principal); E08.9 Diabetes mellitus due to underlying condition without complications

== ENCOUNTER → 2024-01-12 | Outpatient (CLI) | payer OTHER | LOC: M OUTALCOH 12:52 | PROVIDERS: ATTEND Psychiatry & Neurology Psychiatry | DX: F10.20 Alcohol dependence, uncomplicated (principal); Z72.0 Tobacco use ==

== ENCOUNTER 2024-01-26 13:58 | Outpatient (RCR) | payer OTHER | END 2024-02-07 | LOC: M OUTALCOH 13:58 | PROVIDERS: ATTEND Psychiatry & Neurology Psychiatry | DX: F10.20 Alcohol dependence, uncomplicated (principal); Z72.0 Tobacco use ==

== ENCOUNTER 2024-02-01 21:36 | Emergency (ER) | payer OTHER ==
[~2024-02-01] VITALS: Ht 188 cm; Wt 81.8 kg
[2024-02-01 22:13] LABS: HEMATOCRIT 44.6 % (42.0-52.0); HEMOGLOBIN 15.1 g/dl (13.5-17.5); MEAN CORPUSCULAR HEMOGLOBIN 26.5 pg (27.0-33.0); MEAN CORPUSCULAR HGB CONC 33.9 g/dl (32.0-36.5); MEAN CORPUSCULAR VOLUME 78.4 fl (80.0-96.0); PLATELET COUNT, AUTOMATED 271 10^3/uL (150-450); RED BLOOD COUNT 5.69 10^6/uL (4.30-6.10); WHITE BLOOD COUNT 8.6 10^3/uL (4.0-10.0)
[2024-02-01] MEDS: ONDANSETRON 4MG 2ML VIAL IV ONE (22:30)
[2024-02-01] MEDS: LORazepam 2 MG/ML 1ML VIAL IV STA (22:30)
[2024-02-01 22:32] LABS: AMPHETAMINES LEVEL URINE NEGATIVE (NEGATIVE); BARBITURATES URINE NEGATIVE (NEGATIVE); BENZODIAZEPINES URINE NEGATIVE (NEGATIVE); CANNABINOIDS URINE NEGATIVE (NEGATIVE); METHADONE URINE NEGATIVE (NEGATIVE); OPIATES URINE NEGATIVE (NEGATIVE); PHENCYCLIDINE URINE NEGATIVE (NEGATIVE)
[2024-02-01 22:33] LABS: COCAINE METABOLITE URINE NEGATIVE (NEGATIVE)
[2024-02-01 22:36] LABS: SALICYLATE LEVEL < 3.0 MG/DL (<30)
[2024-02-01 22:37] LABS: ALBUMIN 4.5 G/DL (3.2-5.2); ALKALINE PHOSPHATASE 371 U/L (40-129); ALT/SGPT 83 U/L (7.0-40); AST/SGOT 146 U/L (<34); BILIRUBIN,DIRECT 0.4 MG/DL (<0.4); BILIRUBIN,TOTAL 0.9 MG/DL (0.3-1.2); BLOOD UREA NITROGEN 7 MG/DL (9-23); CALCIUM LEVEL 9.5 MG/DL (8.5-10.1); CARBON DIOXIDE LEVEL 23 MMOL/L (20-31); CHLORIDE LEVEL 96 MMOL/L (98-107); CREATININE FOR GFR 0.58 MG/DL (0.70-1.30); GLOMERULAR FILTRATION RATE > 60.0 (>60); GLUCOSE, FASTING 137 MG/DL (60-100); POTASSIUM SERUM 4.2 MMOL/L (3.5-5.1); SODIUM LEVEL 139 MMOL/L (136-145); TOTAL PROTEIN 8.8 G/DL (5.7-8.2)
[2024-02-01 22:38] LABS: THYROID STIMULATING HORMONE 0.867 uIU/ML (0.55-4.78)
[2024-02-01 22:55] LABS: LIPASE 21 U/L (12-53)
[2024-02-01 22:56] LABS: ETHYL ALCOHOL (ETHANOL) 0.376 % (0.000-0.010)
[2024-02-02] MEDS: THIAMINE 100 MG TAB PO SCH (03:03)
[2024-02-02] MEDS: OXAZEPAM 15MG CAP PO ONE (03:04)
[2024-02-02] MEDS: MULTIVITAMINS/MINERALS THERAP 1 TAB PO SCH (08:18)
[2024-02-02] MEDS: FOLIC ACID 1MG TAB PO SCH (08:18)
[2024-02-02] MEDS: LORazepam 2 MG TAB PO STA (08:18)
[2024-02-02] MEDS: LORazepam 2 MG TAB PO PRN (13:14)
[2024-02-02 18:46] VITALS: TEMP 98.1
[2024-02-02 19:30] VITALS: BP 160/94; O2SAT 96
== END 2024-02-02 21:03 | disposition home or self-care (01) ==
LOC: EDBD 21:36 → M ED 21:36
DX: F10.120 Alcohol abuse with intoxication, uncomplicated (principal); I50.22 Chronic systolic (congestive) heart failure; E11.9 Type 2 diabetes mellitus without complications; E55.9 Vitamin D deficiency, unspecified; F41.9 Anxiety disorder, unspecified; F17.210 Nicotine dependence, cigarettes, uncomplicated; Z79.4 Long term (current) use of insulin; Z79.84 Long term (current) use of oral hypoglycemic drugs; Z79.899 Other long term (current) drug therapy
CPT/HCPCS: 80048; 80076; 80143; 80307; 82077; 83690; 84443; 85027; 96374; 99285; J2060; J2405

== ENCOUNTER → 2024-02-07 | Outpatient (CLI) | payer OTHER, MEDICAID ==
[2024-02-07 10:16] LABS: HEMATOCRIT 38.6 % (42.0-52.0); HEMOGLOBIN 13.2 g/dl (13.5-17.5); MEAN CORPUSCULAR HEMOGLOBIN 27.6 pg (27.0-33.0); MEAN CORPUSCULAR HGB CONC 34.2 g/dl (32.0-36.5); MEAN CORPUSCULAR VOLUME 80.6 fl (80.0-96.0); RED BLOOD COUNT 4.79 10^6/uL (4.30-6.10)
[2024-02-07 10:31] LABS: PLATELET COUNT, AUTOMATED 94 10^3/uL (150-450)
[2024-02-07 11:27] LABS: HEMOGLOBIN A1c 7.6 % (4.0-6.0)
[2024-02-07 11:34] LABS: ALBUMIN 4.2 G/DL (3.2-5.2); ALKALINE PHOSPHATASE 208 U/L (40-129); ALT/SGPT 80 U/L (7.0-40); AST/SGOT 49 U/L (<34); BILIRUBIN,TOTAL 0.7 MG/DL (0.3-1.2); BLOOD UREA NITROGEN 13 MG/DL (9-23); CALCIUM LEVEL 9.7 MG/DL (8.5-10.1); CARBON DIOXIDE LEVEL 29 MMOL/L (20-31); CHLORIDE LEVEL 94 MMOL/L (98-107); GLOMERULAR FILTRATION RATE > 60.0 (>60); GLUCOSE, FASTING 440 MG/DL (60-100); POTASSIUM SERUM 3.9 MMOL/L (3.5-5.1); SODIUM LEVEL 133 MMOL/L (136-145); TOTAL PROTEIN 7.7 G/DL (5.7-8.2)
== END ==
LOC: M PLALAB 09:00
PROVIDERS: ATTEND Family Medicine
DX: E11.9 Type 2 diabetes mellitus without complications (principal)

== ENCOUNTER → 2024-03-09 | Outpatient (RCR) | payer MEDICAID | LOC: M OUTALCOH 02-10 14:57 | PROVIDERS: ATTEND Psychiatry & Neurology Psychiatry | DX: F10.20 Alcohol dependence, uncomplicated (principal); Z72.0 Tobacco use | CPT/HCPCS: 99211; G0397 ==

== ENCOUNTER 2024-03-29 09:04 | Outpatient (RCR) | payer MEDICAID | END 2024-04-06 | LOC: M PT 09:04 | PROVIDERS: ATTEND Family Medicine | DX: M54.50 Low back pain, unspecified (principal) ==

== ENCOUNTER → 2024-04-06 | Outpatient (RCR) | payer MEDICAID | LOC: M OUTALCOH 03-14 12:02 | PROVIDERS: ATTEND Psychiatry & Neurology Psychiatry | DX: F10.20 Alcohol dependence, uncomplicated (principal); Z72.0 Tobacco use ==

== ENCOUNTER 2024-08-26 18:13 | Inpatient (IN) | payer BC ==
[~2024-08-26] VITALS: Ht 185.4 cm; Wt 103.0 kg
[~2024-08-26 18:13] MED LIST changes: +BUSP15TA47 PO; +CYCL5TAB4 PO; -GING1CAP PO; +GING550C4 PO; +INSU100I24 SQ; +LEXA1TAB2 PO
[2024-08-26 19:19] LABS: BASO # 0.0 10^3/uL (0.0-0.2); BASO % 0.3 % (0.0-1.0); EOS # 0.0 10^3/uL (0.0-0.5); EOS % 0.0 % (0.0-3.0); LYMPH # 3.2 10^3/uL (1.5-5.0); LYMPH % 32.1 % (24.0-44.0); MONO # 0.5 10^3/uL (0.0-0.8); MONO % 4.8 % (2.0-8.0); NEUTROPHILS # 6.3 10^3/uL (1.5-8.5); NEUTROPHILS % 62.6 % (36.0-66.0); PLATELET COUNT, AUTOMATED 205 10^3/uL (150-450)
[2024-08-26 19:53] LABS: ETHYL ALCOHOL (ETHANOL) 0.279 % (0.000-0.010)
[2024-08-26 19:58] LABS: ALT/SGPT 74 U/L (7.0-40); AST/SGOT 77 U/L (<34); CALCIUM LEVEL 8.9 MG/DL (8.5-10.1); CARBON DIOXIDE LEVEL 20 MMOL/L (20-31); CHLORIDE LEVEL 94 MMOL/L (98-107); CREATININE FOR GFR 0.72 MG/DL (0.70-1.30); GLOMERULAR FILTRATION RATE > 90.0 (>60); POTASSIUM SERUM 3.8 MMOL/L (3.5-5.1); SODIUM LEVEL 139 MMOL/L (136-145)
[2024-08-26] MEDS: ONDANSETRON 4MG 2ML VIAL IV ONE (20:43)
[2024-08-26] MEDS: NS (Normal Saline) 0.9% 1,000 ML IV ONE (20:43)
[2024-08-26 20:49] LABS: MAGNESIUM LEVEL 1.6 MG/DL (1.8-2.4)
[2024-08-26 21:13] LABS: OSMOLALITY SERUM 363 MOSM/KG (275-295)
[2024-08-26 21:30] LABS: VENOUS BASE EXCESS -0.7 (-2.0-2.0); VENOUS HCO3 22.7 MMOL/L (23.0-27.0); VENOUS O2 SATURATION 98.4 % (60.0-80.0); VENOUS PARTIAL PRESSURE CO2 34.3 mmHg (38.0-50.0); VENOUS PARTIAL PRESSURE O2 136.6 mmHg (30.0-50.0); VENOUS PH 7.439 UNITS (7.330-7.430); VENOUS STANDARD HCO3 23.9 MMOL/L; VENOUS TOTAL CO2 23.8 MMOL/L (24.0-28.0)
[2024-08-26 21:36] LABS: ACETONE/KETONE 1.79 MMOL/L (0.02-0.27)
[2024-08-26] MEDS: MAG SULF 1GM/100ML (MAG RUN) 1 GM in IV 1 EA IV ONE (21:47)
[2024-08-26] MEDS ORDERED: OXAZEPAM 15MG CAP PO SCH (22:00)
[2024-08-26 22:03] LABS: INR 1.1
[2024-08-26] MEDS ORDERED: GLUCAGON INJ 1 MG VIAL SC PRN (23:00)
[2024-08-26] MEDS ORDERED: DEXTROSE 50% 50 ML SYRINGE IV PRN (23:00)
[2024-08-26] MEDS ORDERED: GLUCOSE 4 GM CHEW PO PRN (23:00)
[2024-08-26] MEDS: PROMETHAZINE 25MG/ML 1ML VIAL IV ONE (23:05)
[2024-08-26] MEDS ORDERED: HUMA100I5 SC (23:35)
[2024-08-26] MEDS ORDERED: HOME MED LIST COMPLETE! XX SCH (23:40)
[2024-08-26] MEDS: INSULIN LISPRO (NovoLOG) PER UNIT SC SCH (23:41)
[2024-08-26] MEDS: MAG SULF 1GM/100ML (MAG RUN) 1 GM in IV 1 EA IV SCH (23:42)
[2024-08-26] MEDS: PANTOPRAZOLE 40MG VIAL IV SCH (23:42)
[2024-08-26] MEDS: LanTUS (INSULIN GLARGINE INJ) 1 UNITS/0.01 ML SC ONE (23:42)
[2024-08-26] MEDS: D5W/0.45% SODIUM CHLORIDE 1,000 ML IV SCH (23:42)
[2024-08-27 00:09] LABS: ESTIMATED AVERAGE GLUCOSE 197.0 MG/DL (60-110)
[2024-08-27] MEDS: SUCRALFATE SUSP 1GM/10ML UD PO SCH (00:42)
[2024-08-27 05:00] VITALS: BP 159/96; TEMP 98.9; O2SAT 97
[2024-08-27 05:04] LABS: PLATELET COUNT, AUTOMATED 145 10^3/uL (150-450)
[2024-08-27 05:21] LABS: ALT/SGPT 62 U/L (7.0-40); AST/SGOT 71 U/L (<34); CALCIUM LEVEL 8.5 MG/DL (8.5-10.1); CARBON DIOXIDE LEVEL 30 MMOL/L (20-31); CHLORIDE LEVEL 95 MMOL/L (98-107); CREATININE FOR GFR 0.82 MG/DL (0.70-1.30); GLOMERULAR FILTRATION RATE > 90.0 (>60); POTASSIUM SERUM 4.2 MMOL/L (3.5-5.1); SODIUM LEVEL 139 MMOL/L (136-145)
[2024-08-27] MEDS: OXAZEPAM 15MG CAP PO SCH (06:09)
[2024-08-27 06:39] LABS: KETONE, URINE AUTO RFX 1+ mg/dL (NEGATIVE); LEUKOCYTE ESTERASE UR AUTO RFX NEGATIVE (NEGATIVE); MUCUS, URINE RFX SMALL (NEGATIVE); NITRITE, URINE AUTO RFX NEGATIVE (NEGATIVE); RBC, URINE AUTO RFX 0 /HPF (0-3); SQUAM EPITHELIAL CELL UR AURFX 0 /HPF (0-6); WBC, URINE AUTO RFX 1 /HPF (0-3)
[2024-08-27 06:59] LABS: AMPHETAMINES LEVEL URINE NEGATIVE (NEGATIVE); BARBITURATES URINE NEGATIVE (NEGATIVE); BENZODIAZEPINES URINE NEGATIVE (NEGATIVE); CANNABINOIDS URINE NEGATIVE (NEGATIVE); COCAINE METABOLITE URINE NEGATIVE (NEGATIVE); METHADONE URINE NEGATIVE (NEGATIVE); OPIATES URINE NEGATIVE (NEGATIVE); PHENCYCLIDINE URINE NEGATIVE (NEGATIVE)
[2024-08-27 08:00] VITALS: BP 142/93; TEMP 99.5; O2SAT 93
[2024-08-27 08:16] LABS: MAGNESIUM LEVEL 2.3 MG/DL (1.8-2.4)
[2024-08-27] MEDS: ENOXAPARIN 40 MG/0.4 ML SYRINGE (J1650 PER 10MG) SC SCH (10:01)
[2024-08-27] MEDS: MULTIVITAMINS/MINERALS THERAP 1 TAB PO SCH (10:01)
[2024-08-27] MEDS: THIAMINE 100 MG TAB PO SCH (10:02)
[2024-08-27] MEDS: FOLIC ACID 1 MG TAB PO SCH (10:02)
[2024-08-27 12:00] VITALS: BP 144/91; TEMP 98.4; O2SAT 94
[2024-08-27 16:00] VITALS: BP 151/88; TEMP 98.2; O2SAT 95
[2024-08-27] MEDS: LACTULOSE 20 GM/30 ML SYRUP UDC PO SCH (17:19)
[2024-08-27 20:00] VITALS: BP 146/88; TEMP 98.3; O2SAT 96
[2024-08-28] VITALS: BP 135/91; TEMP 98.8; O2SAT 98
[2024-08-28 04:00] VITALS: BP 122/88; TEMP 98.3; O2SAT 98
[2024-08-28 05:10] LABS: BASO # 0.0 10^3/uL (0.0-0.2); BASO % 0.3 % (0.0-1.0); EOS # 0.1 10^3/uL (0.0-0.5); EOS % 2.6 % (0.0-3.0); LYMPH # 1.8 10^3/uL (1.5-5.0); LYMPH % 53.4 % (24.0-44.0); MONO # 0.2 10^3/uL (0.0-0.8); MONO % 5.2 % (2.0-8.0); NEUTROPHILS # 1.3 10^3/uL (1.5-8.5); NEUTROPHILS % 37.9 % (36.0-66.0)
[2024-08-28 05:18] LABS: PLATELET COUNT, AUTOMATED 76 10^3/uL (150-450)
[2024-08-28 05:31] LABS: ALT/SGPT 59 U/L (7.0-40); AST/SGOT 82 U/L (<34); CALCIUM LEVEL 8.9 MG/DL (8.5-10.1); CARBON DIOXIDE LEVEL 30 MMOL/L (20-31); CHLORIDE LEVEL 98 MMOL/L (98-107); CREATININE FOR GFR 0.76 MG/DL (0.70-1.30); GLOMERULAR FILTRATION RATE > 90.0 (>60); MAGNESIUM LEVEL 1.9 MG/DL (1.8-2.4); POTASSIUM SERUM 3.1 MMOL/L (3.5-5.1); SODIUM LEVEL 140 MMOL/L (136-145)
[2024-08-28] MEDS: POTASSIUM CHLORIDE 10MEQ SR TABLET PO ONE ×2 (06:23→12:28)
[2024-08-28] MEDS ORDERED: POTASSIUM CHLORIDE 10MEQ SR TABLET PO ONE (06:55)
[2024-08-28 08:00] VITALS: BP 128/82; TEMP 98; O2SAT 96
[2024-08-28 10:43] LABS: CALCIUM LEVEL 8.6 MG/DL (8.5-10.1); CARBON DIOXIDE LEVEL 28 MMOL/L (20-31); CHLORIDE LEVEL 97 MMOL/L (98-107); CREATININE FOR GFR 0.73 MG/DL (0.70-1.30); GLOMERULAR FILTRATION RATE > 90.0 (>60); POTASSIUM SERUM 3.4 MMOL/L (3.5-5.1); SODIUM LEVEL 137 MMOL/L (136-145)
[2024-08-28] MEDS ORDERED: IBUPROFEN 400 MG TAB PO ONE (12:00)
[2024-08-28] MEDS: INSULIN LISPRO (NovoLOG) PER UNIT SC SCH (12:28)
[2024-08-28] MEDS: ACETAMINOPHEN 325 MG TAB PO ONE (12:30)
[2024-08-28 13:12] LABS: BASO # 0.0 10^3/uL (0.0-0.2); BASO % 0.6 % (0.0-1.0); EOS # 0.1 10^3/uL (0.0-0.5); EOS % 2.3 % (0.0-3.0); LYMPH # 1.1 10^3/uL (1.5-5.0); LYMPH % 32.3 % (24.0-44.0); MONO # 0.2 10^3/uL (0.0-0.8); MONO % 5.8 % (2.0-8.0); NEUTROPHILS # 2.0 10^3/uL (1.5-8.5); NEUTROPHILS % 58.4 % (36.0-66.0)
[2024-08-28 13:15] LABS: PLATELET COUNT, AUTOMATED 80 10^3/uL (150-450)
[2024-08-28 13:29] LABS: CALCIUM LEVEL 9.1 MG/DL (8.5-10.1); CARBON DIOXIDE LEVEL 30 MMOL/L (20-31); CHLORIDE LEVEL 98 MMOL/L (98-107); CREATININE FOR GFR 0.78 MG/DL (0.70-1.30); GLOMERULAR FILTRATION RATE > 90.0 (>60); POTASSIUM SERUM 3.7 MMOL/L (3.5-5.1); SODIUM LEVEL 140 MMOL/L (136-145)
[2024-08-28] MEDS ORDERED: THERTAB52 PO (15:11)
[2024-08-28] MEDS ORDERED: OXAZEPAM 15MG CAP PO SCH (21:00)
== END 2024-08-28 15:22 | disposition home or self-care (01) | DRG 775 ==
LOC: M ED 18:13 → EDBD 18:13 → M ED INP 22:59 → M ICU 08-27 04:52
PROVIDERS: ADMIT Internal Medicine; ATTEND Internal Medicine
DX: F10.239 Alcohol dependence with withdrawal, unspecified (principal); K76.6 Portal hypertension; E87.20 Acidosis, unspecified; D69.6 Thrombocytopenia, unspecified; E83.42 Hypomagnesemia; K74.60 Unspecified cirrhosis of liver; F41.9 Anxiety disorder, unspecified; F32.A Depression, unspecified; M54.9 Dorsalgia, unspecified; G89.29 Other chronic pain; E11.9 Type 2 diabetes mellitus without complications; K29.20 Alcoholic gastritis without bleeding; R74.01 Elevation of levels of liver transaminase levels; Z79.4 Long term (current) use of insulin; Z79.84 Long term (current) use of oral hypoglycemic drugs; Z79.899 Other long term (current) drug therapy

== ENCOUNTER 2024-09-18 03:52 | Emergency (ER) | payer BC ==
[~2024-09-18] VITALS: Ht 188 cm; Wt 83.9 kg
[~2024-09-18 03:52] MED LIST changes: +HUMA100I5 SC; +THERTAB52 PO
[2024-09-18 03:56] VITALS: BP 150/96; TEMP 98.6; O2SAT 97
== END 2024-09-18 04:05 | disposition left against medical advice (07) ==
LOC: M ED 03:52
DX: Z53.21 Procedure and treatment not carried out due to patient leaving prior to being seen by health care provider (principal)

== ENCOUNTER → 2024-12-04 | Outpatient (CLI) | payer MEDICAID ==
[~2024-12-04] MED LIST changes: -COLC0.6T47 PO; +COLC0.6T53 PO
== END ==
LOC: M PLAIMG 09:45
PROVIDERS: ATTEND Family Medicine
DX: M51.370 Other intervertebral disc degeneration, lumbosacral region with discogenic back pain only (principal); K70.30 Alcoholic cirrhosis of liver without ascites; E08.65 Diabetes mellitus due to underlying condition with hyperglycemia; D50.9 Iron deficiency anemia, unspecified; E06.9 Thyroiditis, unspecified

== ENCOUNTER → 2024-12-04 | Outpatient (CLI) | payer MEDICAID ==
[2024-12-04 11:27] LABS: PLATELET COUNT, AUTOMATED 146 10^3/uL (150-450)
[2024-12-04 11:28] LABS: ESTIMATED AVERAGE GLUCOSE 171.0 MG/DL (60-110)
[2024-12-04 11:46] LABS: MALB URINE SIEMENS 61.0 MG/L
[2024-12-04 11:49] LABS: TOTAL 25(OH) VITAMIN D 28.1 NG/ML (20.0-100.0)
[2024-12-04 11:52] LABS: ALT/SGPT 74 U/L (7.0-40); AST/SGOT 63 U/L (<34); CALCIUM LEVEL 10.2 MG/DL (8.5-10.1); CARBON DIOXIDE LEVEL 28 MMOL/L (20-31); CHLORIDE LEVEL 100 MMOL/L (98-107); CHOLESTEROL LEVEL 201 MG/DL (<200); CHOLESTEROL RISK RATIO 4.90 (<5); CREATININE FOR GFR 0.76 MG/DL (0.70-1.30); GLOMERULAR FILTRATION RATE > 90.0 (>60); LDL CHOLESTEROL 133.8 MG/DL (<100); NON-HDL-C 160.0 MG/DL; POTASSIUM SERUM 3.7 MMOL/L (3.5-5.1); SODIUM LEVEL 142 MMOL/L (136-145); TRIGLYCERIDES LEVEL 131 MG/DL (<150)
[2024-12-04 12:00] LABS: CREATININE, URINE 291.4 MG/DL; MAU/CREAT RATIO 20.9 MCG/MG (0.0-30.0)
== END ==
LOC: M PLALAB 09:17
PROVIDERS: ATTEND Family Medicine
DX: K70.30 Alcoholic cirrhosis of liver without ascites (principal); E08.65 Diabetes mellitus due to underlying condition with hyperglycemia; D50.9 Iron deficiency anemia, unspecified; E06.9 Thyroiditis, unspecified